=== PATIENT | female | born 1960 | race Caucasian/White ===

== ENCOUNTER 2019-10-23 20:32 | Inpatient (IN) | payer OTHER, SELFPAY ==
[2019-10-23 20:33] VITALS: BP 132/78; PULSE 98; RESP 18; TEMP 36.9; O2SAT 94; BMI 25.8
--- NOTE | 2019-10-23 20:37 | ED_ITS ---
Entered by Anni Ballard, acting as scribe for HPI - General Adult General: Chief complaint: Back Pain/Injury Stated complaint: back pain, SOB Time Seen by Provider: 10/23/19 20:35 History of Present Illness: HPI narrative: 59yo female presents with lower back pain. She had knee surgery about 1 week ago and pain started several days after. Pain worsens with deep breath. She denies any fever or cough.Patient has been up and active since surgery. Sudden onset of right-sided chest pain and shortness of breath. Patient has conversational dyspnea and hypoxia on arrival. Associated symptoms: Deny chest pain, dyspnea, malaise, nausea, rash or vomiting Review of Systems Const: Denies: fever, chills, body aches, change in appetite, fatigue or malaise ENMT: Denies: throat pain, ear pain, nasal discharge or nasal congestion Card: Denies: chest pain, edema, shortness of breath on exertion or shortness of breath when lying down Resp: Denies: shortness of breath, productive cough or non-productive cough GI: Denies: abdominal pain, nausea, vomiting, vomiting blood, coffee grounds in vomit, diarrhea, constipation, bloating, blood in stool or black tarry stool : Denies: flank pain, difficulty urinating, painful urination, urinary frequency or urinary urgency Skin/Breast: Denies: rash or itching [facility] ED PFSH: Medical History (Updated 10/26/19 @ 13:38 by Pk Young DO) Allergic rhinitis Surgical History History of hysterectomy History of orthopedic surgery Social History Smoking and tobacco status: former smoker Physical Exam Const: COMMON NORMALS: no apparent distress GENERAL APPEARANCE: cooperative and comfortable ORIENTATION/CONSCIOUSNESS: Yes awake, Yes oriented to person, Yes oriented to place and Yes oriented to time HENMT: COMMON NORMALS: normocephalic, head/scalp atraumatic, hearing grossly normal bilaterally, external ears normal, EAC's normal, TM's normal bilaterally, nasal mucous membranes and turbinates normal, moist oral mucous membranes and oropharynx normal HEAD & SCALP: normocephalic and atraumatic NOSE: nasal mucous membranes and turbinates normal EXTERNAL EAR: Yes external ears normal EXTERNAL AUDITORY CANAL: EAC's normal TYMPANIC MEMBRANE: TM's normal bilaterally Eye: COMMON NORMALS: PERRL, EOMs intact bilaterally, conjunctivae normal and no scleral icterus CONJUNCTIVA: Yes conjunctivae normal PUPIL: Yes PERRL Neck/C-Spine: COMMON NORMALS: full ROM, no lymphadenopathy, supple and no JVD Lymph: LYMPHATIC: no lymphadenopathy noted and no lymphedema noted Resp: COMMON NORMALS: normal respiratory effort, no retractions, no use of accessory muscles and clear to auscultation bilaterally AUSCULTATION: clear to auscultation bilaterally Cardio: COMMON NORMALS: no JVD, regular rate, regular rhythm and no murmurs RATE: regular rate RHYTHM: regular rhythm GI: COMMON NORMALS: soft to palpation and no hepatosplenomegaly AUSCULTATION: Yes normoactive bowel sounds PALPATION: Yes soft, No tender, No guarding and Yes no hepatosplenomegaly : BLADDER/KIDNEY EXAM: Yes CVA tenderness Back/Pelvis: GENERAL BACK: Yes CVA tenderness Extremity: COMMON NORMALS: normal to inspection, normal capillary refill, no clubbing, cyanosis or edema, no calf tenderness and no pedal edema Neuro: SENSORIUM/ORIENTATION: Yes oriented to person, Yes oriented to place and Yes oriented to time Skin: COMMON NORMALS: no rashes or lesions noted GENERAL SKIN EXAM: no rashes or lesions noted Course ED course: Patient is hypoxic. Has fairly significant PE burden. We will go and started on heparin and monitor in the hospital. Vital Signs: Vital signs: Vital Signs Temperature 98.3 F 10/26/19 09:57 Pulse Rate 91 10/26/19 09:57 Respiratory Rate 20 H 10/26/19 09:57 Blood Pressure 127/76 10/26/19 09:57 Pulse Oximetry 94 10/26/19 09:57 [facility] - General Adult Lab Data: Labs: Lab Results 10/23/19 10/23/19 Range/Units 20:00 20:00 WBC 7.3 (4.0-10.0) 10^3/ uL RBC 3.88 L (4.1-5.3) 10^6/u L Hgb 12.0 (11.5-15.3) g/dL Hct 36.7 L (37.0-47.0) % MCV 94.6 (81-99) fL MCH 30.9 (28.0-34.0) pg MCHC 32.7 (30.0-36.0) g/dL RDW 12.5 (12.1-15.1) % Plt Count 190 (130-400) 10^3/c mm MPV 11.2 H (7.4-10.4) fL Neut % (Auto) 69.0 % Lymph % (Auto) 21.8 % [place] % (Auto) 7.0 % Eos % (Auto) 1.8 % Baso % (Auto) 0.3 % Neut # (Auto) 5.1 (1.8-7.7) 10^3/u L Lymph # (Auto) 1.6 (0.8-4.8) 10^3/u L [place] # (Auto) 0.5 (0.2-0.9) 10^3/u L Eos # (Auto) 0.1 (0.0-0.8) 10^3/u L Baso # (Auto) 0.0 (0.0-0.1) 10^3/u L Nucleated RBC % (a uto) 0 % Nucleated RBCs # 0.0 /100WBC Sodium 142 (136-145) mmol/L Potassium 3.8 (3.5-5.1) mmol/L Chloride 107 (98-107) mmol/L Carbon Dioxide 26 (22-29) mmol/L Anion Gap 12.8 (5-19) BUN 18 (6-20) mg/dL Creatinine 0.9 (0.5-0.9) mg/dL GFR Calculation 64.3 L (90-130) mL/min Glucose 128 H (65-115) mg/dL Calcium 9.7 (8.5-10.5) mg/dL Total Bilirubin 0.2 (0.15-1.2) mg/dL AST 20 (0-32) U/L ALT 18 (0-33) U/L Alkaline Phosphata se 102 (35-105) IU/L Total Protein 7.2 (6.6-8.7) g/dL Albumin 4.1 (3.5-5.2) g/dL Globulin 3.1 (1.3-4.6) g/dL Discharge Plan Discharge Patient Disposition: Admitted As Inpatient Admit Provider: Sherry Baker Clinical Impression: Pulmonary embolism Condition: Stable Discharge Orders: Discharge Order (Routine); Ordered 10/26/19 Ordered By: Topher Diaz Referrals: Farzad Kennedy DO [Family Provider] - 11/09/19 8:45 am Discharge Diet: Regular Discharge Activity: Resume usual activity Patient Instructions: Iron Supplements (By mouth), Ketorolac (By mouth), Apixaban (By mouth) Additional Instructions: Take Eliquis 10 mg twice daily for 6 more days followed by 5 mg twice daily for at least 6 months. Take Toradol 10 mg twice daily for 5 days with meals to decrease inflammation around pulmonary embolism and left knee. Interventions: ED Discharge Assessment Last Done: 10/24/19 00:15 Discharge Date/Time: 10/24/19 00:15 Coding Level of Care Code ED Fire Extinguisher Repairer for Chg Fwd Exam Comprehensive The documentation recorded by the Elio vallejo Bailey Leadawn, accurately reflects the service I personally performed and the decisions made by Hannah brewster Curtis L, DO Oct 23, 2019 20:32
[2019-10-23 20:48] VITALS: O2SAT 95
--- NOTE | 2019-10-23 20:50 | PC.NURSE ---
pt reports surgery *1 week ago. Pt reports SOB and pain with deep breathing. Pt has decreased lung sounds posterior lower lung right side.
--- NOTE | 2019-10-23 21:25 | CTR_ITS ---
PROCEDURE INFORMATION: Exam: CT Angiography Chest With Contrast Exam date and time: 10/23/2019 9:55 PM Age: 59 years old Clinical indication: Shortness of breath; Chest pain; Additional info: Dypsnea, chest pain TECHNIQUE: Imaging protocol: Computed tomographic angiography of the chest with intravenous contrast. 3D rendering: MIP and/or 3D reconstructed images were created by the technologist. Total DLP: 560.74 mGy-cm Radiation optimization: All CT scans at this facility use at least one of these dose optimization techniques: automated exposure control; mA and/or kV adjustment per patient size (includes targeted exams where dose is matched to clinical indication); or iterative reconstruction. Contrast material: OMNI 350; Contrast volume: 95 ml; Contrast route: IV; COMPARISON: CR Chest 1 [place] [id number] 09/05/2018 4:45 AM FINDINGS: Pulmonary arteries: There is some partial atelectasis and infiltrate in the posterior right lower lobe which may represent some pneumonitis related to acute pulmonary emboli. There is a large embolus in the right lower lobe mostly obstructing flow to the posterior basal segment. Smaller emboli are seen in right middle and upper lobe branches and in the other basal segments. Aorta: Unremarkable. No aortic aneurysm. No aortic dissection. Lungs: There are multiple calcified granulomas in both lungs. Pleural space: Unremarkable. No pneumothorax. No pleural effusion. Heart: Unremarkable. No cardiomegaly. No pericardial effusion. Lymph nodes: There is no pulmonary mediastinal mass or adenopathy. Bones/joints: Unremarkable. No acute fracture. Soft tissues: Unremarkable. CT/CT angio chest PE protcl [id number] IMPRESSION: Positive for pulmonary emboli. Radiation Dose CTDIVOL = (mGy): DLP = 560.74 (mGy-cm)
[2019-10-23] MEDS: morphine 4 mg/mL SDV 1 mL IVP (21:35)
[2019-10-23] MEDS: ondansetron 2 mg/ML SDV 2 mL 4 MG IVP (21:35)
[2019-10-23 21:40] VITALS: BP 123/72; PULSE 90; RESP 18; O2SAT 90
[2019-10-23 21:43] LABS: Basophils % 0.3 %; Eosinophils # 0.1 10^3/uL (0.0-0.8); Eosinophils % 1.8 %; Hematocrit 36.7 % (37.0-47.0); Lymphocytes # 1.6 10^3/uL (0.8-4.8); Lymphocytes % 21.8 %; Mean Corpuscular HGB Conc 32.7 g/dL (30.0-36.0); Mean Corpuscular Hemoglobin 30.9 pg (28.0-34.0); Mean Corpuscular Volume 94.6 fL (81-99); Mean Platelet Volume 11.2 fL (7.4-10.4); Monocytes # 0.5 10^3/uL (0.2-0.9); Neutrophils # 5.1 10^3/uL (1.8-7.7); Nucleated Red Blood Cells % 0 %; Platelet Count 190 10^3/cmm (130-400); Red Blood Count 3.88 10^6/uL (4.1-5.3); Red Cell Distribution Width 12.5 % (12.1-15.1); White Blood Count 7.3 10^3/uL (4.0-10.0)
[2019-10-23 21:55] LABS: Alanine Aminotransferase 18 U/L (0-33); Albumin Level 4.1 g/dL (3.5-5.2); Alkaline Phosphatase 102 IU/L (35-105); Anion Gap 12.8 (5-19); Aspartate Amino Transferase 20 U/L (0-32); Blood Urea Nitrogen 18 mg/dL (6-20); Calcium 9.7 mg/dL (8.5-10.5); Carbon Dioxide 26 mmol/L (22-29); Chloride 107 mmol/L (98-107); Globulin 3.1 g/dL (1.3-4.6); Glomerular Filtration Rate 64.3 mL/min (90-130); Glucose 128 mg/dL (65-115); Potassium 3.8 mmol/L (3.5-5.1); Sodium 142 mmol/L (136-145); Total Bilirubin 0.2 mg/dL (0.15-1.2); Total Protein 7.2 g/dL (6.6-8.7)
[2019-10-23] MEDS: iohexol 350 mg/mL 100 mL Btl 95 ML IV (22:18)
--- NOTE | 2019-10-23 22:21 | PC.NURSE ---
pt transported to CT by stretcher with tech
[2019-10-23 22:56] VITALS: BP 117/89; PULSE 98; RESP 23; O2SAT 96
[2019-10-23 23:18] LABS: Platelet Count 165 10^3/cmm (130-400)
[2019-10-23] MEDS: heparin drip 25,000 UNIT/500 ML PREMIX 29 UNIT IV (23:36)
[2019-10-23] MEDS: cefTRIAXone 1,000 MG in sodium chloride 0.9% (plus) 50 ML 100 MG IV (23:36)
[2019-10-23] MEDS: heparin 5,000 unit/mL INJ 1 mL 5000 UNIT IV (23:37)
[2019-10-23 23:42] VITALS: BP 129/85; PULSE 32; O2SAT 96
[2019-10-24] VITALS (43 sets, daily range): BP systolic 105–135; BP diastolic 66–85; PULSE 69–112; RESP 15–34; TEMP 36.6–37.1; O2SAT 88–99
--- NOTE | 2019-10-24 00:08 | PC.NURSE ---
ATTEMPTED TO CALL REPORT TO ICU-ICU NURSE NOT READY FOR REPORT
[2019-10-24] MEDS: azithromycin 500 MG in sodium chloride 0.9% 250 ML 250 MG IV (00:28)
--- NOTE | 2019-10-24 01:26 | PC.NURSE ---
PT HAS NECKLACE AND EARRINGS AND WATCH ON HER. PT HAS BELONGINGS BAG AT BEDSIDE.
[2019-10-24] MEDS: morphine 4 mg/mL SDV 1 mL 2 MG IVP ×2 (01:39→09:13)
[2019-10-24] MEDS: D5-NS 0.45% + KCL 20 mEq 20 MEQ/1,000 ML BAG 100 MEQ IV (01:40)
--- NOTE | 2019-10-24 02:14 | USCV_ITS ---
Susan Turner Age: 59 Gender: F : 1960 Exam Date: 10/24/2019 08:57 Ordering Phys: Sherry Baker MD Technologist: Beatriz Mcdowell Exam Location: [facility] [place] Indication: PE HISTORY: Pulmonary embolism. PROCEDURES: Venous duplex imaging was performed in bilateral lower extremities. The following venous structures were evaluated: common femoral vein, profunda vein, proximal portion of the greater saphenous vein, superficial femoral vein, and the popliteal vein. In addition, the posterior tibial and peroneal trunk were evaluated. Serial compression, augmentation maneuvers, and spectral Doppler flow evaluation were performed. FINDINGS: Normal 2-D Doppler and augmentation and compressibility throughout the lower extremity venous structures. Additional imaging through the proximal calf veins also reveals no thrombus. Limited evaluation of the greater saphenous vein is patent with no thrombus.. CONCLUSIONS No evidence of DVT in the above-mentioned identifiable veins. Dr Everardo Huggins MD [facility] (Electronically Signed) Final Date: 26 October 2019 08:36 S
--- NOTE | 2019-10-24 02:57 | ECG_ITS ---
Measurements Intervals [place] Rate: 97 P: 20 CA: 160 QRS: 8 QRSD: 99 T: 26 QT: 325 QTc: 414 SINUS RHYTHM INCOMPLETE RIGHT BUNDLE BRANCH BLOCK [90+ ms QRS DURATION, TERMINAL R IN V1/V2, 40+ 40+ ms S IN I/aVL/V4/V5/V6] Compared to ECG 09/05/2018 07:09:41 Incomplete right bundle-branch block now present Electronically Signed On 10-24-2019 14:11:07 CENTRAL SUPPLY SUPERVISOR by Shirley Chairez M.D. [id number]
--- NOTE | 2019-10-24 02:57 | USCV_ITS ---
JohnnySusan mclain Age: 59 Gender: F : 1960 Exam Date: 10/24/2019 08:48 Ordering Phys: Sherry Baker MD Technologist: Beatriz Mcdowell Exam Location: [facility] [place] Indication: ASSESS R VENTRICULAR FUNCTION BP: 108 / 69 HR: 77 Rhythm: Sinus Technical Quality: Adequate MEASUREMENTS (Male / Female) Normal Values 2D ECHO LV Diastolic Diameter PLAX 3.1 cm 4.2 - 5.9 / 3.9 - 5.3 cm LV Systolic Diameter PLAX 2.6 cm LV Chamber Size 4.0 cm IVS Diastolic Thickness 1.3 cm 0.6 - 1.0 / 0.6 - 0.9 cm IVS Systolic Thickness 1.3 cm LVPW Diastolic Thickness 1.5 cm 0.6 - 1.0 / 0.6 - 0.9 cm LVPW Systolic Thickness 2.1 cm RV Chamber Size 2.2 cm LVOT Diameter 2.0 cm LV Ejection Fraction 2D Teich 34.5 % LV Ejection Fraction MOD 2C 61.3 % LV Ejection Fraction 2C AL 62.4 % LA Diameter 2.8 cm LA Width 3.6 cm LA Height 3.9 cm RA Width 2.4 cm RA Height 3.9 cm Aorta at Sinotubular Diameter 2.7 cm M-MODE LV Diastolic Diameter MM 4.4 cm 4.2 - 5.9 / 3.9 - 5.3 cm LV Systolic Diameter MM 3.1 cm LV Ejection Fraction MM Teich 56.7 % IVS Diastolic Thickness MM 0.8 cm 0.6 - 1.0 / 0.6 - 0.9 cm IVS Systolic Thickness MM 1.0 cm LVPW Diastolic Thickness MM 0.7 cm 0.6 - 1.0 / 0.6 - 0.9 cm LVPW Systolic Thickness MM 0.9 cm Aortic Annulus Diameter 3.1 cm LA Ao Ratio MM 0.9 MV E Point Septal Separation 0.3 cm FINDINGS Left Ventricle Normal left ventricular size, systolic function and wall thickness, with no regional wall motion abnormalities. Left ventricular ejection fraction is estimated at 60 %. Right Ventricle Normal right ventricular size and systolic function. Right Atrium Normal right atrial size. Left Atrium Normal left atrial size. Mitral Valve Structurally normal mitral valve. Aortic Valve Structurally normal trileaflet aortic valve. Tricuspid Valve Structurally normal tricuspid valve. Pulmonic Valve Structurally normal pulmonic valve. Pericardium No pericardial effusion. Aorta Normal sized aortic root. CONCLUSIONS 1. This is a limited 2 D echocardiogram. 2. Normal left ventricular size, systolic function and wall thickness, with no regional wall motion abnormalities. Left ventricular ejection fraction is estimated at 60 %. 3. Normal right ventricular size and systolic function. 4. No prior similar studies to compare. Shirley Chairez MD (Electronically Signed) Final Date: 24 October 2019 18:11 S
[2019-10-24] MEDS: ketorolac 30 mg/mL INJ IVP ×3 (03:09→20:40)
--- NOTE | 2019-10-24 03:52 | PM.HP ---
Providers/Chief Complaint Admitting Physician: Sherry Baker MD Chief Complaint: BACK PAIN History of Present Illness Susan Turner is a 59 year old female without significant comorbidities who presented to the ER today with chief complaints of chest pain and shortness of breath. Patient underwent meniscal surgery on the left knee in [place] approximately 1 week ago. She was discharged the next day with instructions to be nonweightbearing on the affected leg. She went to work the next day and through the week was not strictly nonweightbearing. She was still able to ambulate with the help of a walker. On waking up this morning she started to experience right-sided chest discomfort radiating into her axilla and back. She continued to be at work through the day but by the evening the pain got severe enough to the point that she needed to come to the ED. Additionally her was concerned because she was looking more tachypneic and was unable to speak in complete sentences without catching her breath. On arrival at the ED her O2 sat was 89% on attempting to lie recumbent. She was also noted to be tachypneic with respiratory rate of around 40/min. Blood pressure has remained stable. CTA of the chest was performed which showed large embolus in the right lower lobe mostly obstructing flow to the posterior basal segment. Smaller emboli are seen in the right middle and upper lobe branches and in the other basal segments. There was also some partial atelectasis and infiltrate in the posterior right lower lobe representing pneumonitis related to acute PE. Patient has received morphine 4 mg with improvement in pain. She has been started on unfractionated heparin weight-based protocol from the ED. At the time of my exam she is feeling improved, was noted to be asleep, however on waking up does become tachypneic within less than 5 minutes of conversation. Oxygen saturation is maintained. Denies any cough or expectoration. Denies URI symptoms. Denies fever. No past history of PE or lower extremity DVT. No family history of hypercoagulable states. She is postmenopausal, not on any hormone replacement. Review of Systems General: Reports: 10 or more systems reviewed and unremarkable except in HPI and below Const: Denies: fever, chills or body aches Eyes: Denies: change in vision, blurry vision or photophobia ENMT: Reports: hoarseness; Denies: throat pain, enlarged tonsils, painful swallowing or nasal congestion Card: Reports: chest pain and shortness of breath on exertion; Denies: palpitations, irregular heart rhythm, edema, swelling of feet/ankles, lightheadedness, pre-syncope or shortness of breath when lying down Resp: Reports: shortness of breath; Denies: productive cough, non-productive cough, wheezing, stridor, pain on inspiration, change in phlegm color, coughing up blood or chest congestion GI: Denies: abdominal pain, nausea, vomiting, vomiting blood, coffee grounds in vomit, difficulty swallowing, heartburn/indigestion, diarrhea, constipation, cramping, change in stool character, blood in stool or black tarry stool : Denies: flank pain, difficulty urinating, painful urination, urinary frequency, urinary urgency, urinary hesitancy or blood in urine Musc: Denies: neck pain, back pain, extremity pain, joint swelling, joint warmth or deformity Neuro: Denies: headache, numbness in extremities, weakness in extremities, changes in sensation, difficulty walking, frequent falls, dizziness, vertigo, behavioral changes, slurred speech or seizure-like activity Psych: Denies: anxiety, depression, suicidal ideation or homicidal ideation Endo: Denies: excessive urination, excessive thirst, tired all the time, cold intolerance or hot flashes Thom/Lymph: Denies: easy bruising or easy bleeding Medications/Allergies Allergies Allergy/AdvReac Type Severity Reaction Status Date / Time No Known Allergies Allergy Verified 10/23/19 20:35 PFSH Acute PFSH: Medical History (Updated 10/24/19 @ 03:59 by Sherry Baker MD) Allergic rhinitis Surgical History History of hysterectomy History of orthopedic surgery Social History Smoking and tobacco status: former smoker Vitals/I&O/Wt Last Vital Signs Temp 98.8 F 10/24/19 01:00 Pulse 104 H 10/24/19 02:00 Resp 23 H 10/24/19 02:00 BP 127/81 10/24/19 02:00 Pulse Ox 98 10/24/19 02:00 10/23/19 10/23/19 10/24/19 14:59 22:59 06:59 Intake Total 186.667 / 186.667 Balance 186.667 / 186.667 Weight last 48 hrs Weight 72.575 kg Physical Exam Narrative: EXAM NARRATIVE: GEN: Awake, alert and oriented, no acute distress, lying in bed asleep on initial exam, however becomes tachypneic upon talking in complete sentences. CVS: S1S2 N RS: clear to auscultation B/L Abd: Soft, nt/nd , bs+ OPERATOR WEAPON LOCATING RADAR: no focal neuro deficits EXT: Bilateral lower extremity with patchy tanning, patient attributes this to using a recent tanning lotions. Left lower extremity slightly more swollen when compared to the right. Negative Homans sign. No calf tenderness. Data : 10/23/19 23:06 10/23/19 20:00 Micro: Microbiology 10/23/19 23:06 Blood Culture - Preliminary Blood SPECIMEN COLLECTED 10/23/19 23:12 Blood Culture - Preliminary Blood SPECIMEN COLLECTED A&P Assessment and plan (1) Pulmonary embolism: Status: Acute Code(s): I26.99 - Other pulmonary embolism without acute cor pulmonale (2) History of surgical removal of meniscus of knee: Status: Acute Code(s): Z98.890 - Other specified postprocedural states Attestations Medical Necessity Statement*: Admit to ICU in view of large pulmonary embolism. Patient is currently hemodynamically stable In the ER she was noted to be hypoxic with O2 sat of 89% on lying down improved with 2 L supplemental O2. Systolic blood pressure has been consistently greater than 90 mmHg. Started on unfractionated heparin weight-based infusion in the ER. We will continue the same for now. If patient remains hemodynamically stable without need for thrombolysis or thrombectomy, likely to be transitioned to low molecular weight heparin versus NOAC. Per history appears to be a provoked PE after recent orthopedic surgery. Will obtain venous ultrasound of bilateral lower extremity to look for DVT. EKG and echocardiogram to rule out right heart strain. Supplemental O2 to keep O2 sat greater than 92% Pain currently improved with morphine. Pain likely to be a combination of acute PE and surrounding inflammatory pneumonitis. She received empiric antimicrobials in the ER due to concerns for pneumonia, however given acute presentation and pattern of pneumonitis more likely to be inflammatory changes from the PE, will not continue any antibiotics for now DVT prophylaxis: Currently on therapeutic anticoagulation Full code Coding Level of Care Code Acute Space Physicist for Chg Fwd Diagnoses Pulmonary embolism I26.99 History of surgical removal of meniscus of knee Z98.890
[2019-10-24 04:33] LABS: Partial Thromboplastin Time 90.7 SECONDS (23.9-36.7)
--- NOTE | 2019-10-24 06:37 | PC.NURSE ---
SHIFT SUMMARY PT IS ON 2LNC, PT HAS COMPLAINED OF PAIN AND HAS BEEN GIVEN PAIN AVAILABLE. PT HAS HAD ADEQUATE URINE OUTPUT. PT HAS NOT HAD ANY RESPIRATORY DISTRESS. PT COMPLAINS OF BACK HURTING AND IT SPASMS AT TIMES. PT HEP DRIP CURRENTLY RUNNING AT 17 ML/HR. NO COMPLAINTS OF CHEST PAIN.
--- NOTE | 2019-10-24 08:57 | PM.PN ---
Subjective Subjective: Interval history: Last night. H&P and labs noted. On examination this morning patient is lying comfortably in bed to get out of breath and tachypneic on talking. She is complaining of pain in her chest mostly in the back. Denies of having any nausea, vomiting, dizziness, palpitations, headache. Discussed in detail with the patient regarding the cause for her to have potential PEs. Vitals/I&O/Wt Last Vital Signs Temp 98.4 F 10/24/19 06:00 Pulse 74 10/24/19 08:00 Resp 20 H 10/24/19 08:00 BP 108/69 10/24/19 08:00 Pulse Ox 99 10/24/19 08:00 10/23/19 10/24/19 10/24/19 22:59 06:59 14:59 Intake Total 186.667 / 186.667 Output Total 300 / 300 Balance -113.333 / -113.333 Weight last 48 hrs Weight 72.575 kg Physical Exam Narrative: EXAM NARRATIVE: General: No acute distress, AO x3 HEENT: PERRLA, pupils bilaterally equal and reactive Chest: Normal vesicular breath sounds, no added sounds, decreased air entry in left middle zone in the posterior area. Equal good air entry bilaterally CVS: S1-S2 regular, no murmurs, no tachycardia, no gallops, no rubs Abdomen: Soft, nontender, no organomegaly, bowel sounds present Neuro: No focal deficits, no facial deformity, AO x3, power 5/5 in all limbs Data : 10/23/19 23:06 10/23/19 20:00 Micro: Microbiology 10/23/19 23:06 Blood Culture - Preliminary Blood SPECIMEN COLLECTED 10/23/19 23:12 Blood Culture - Preliminary Blood SPECIMEN COLLECTED A&P Assessment and plan (1) Pulmonary embolism: Status: Acute Code(s): I26.99 - Other pulmonary embolism without acute cor pulmonale (2) History of surgical removal of meniscus of knee: Status: Acute Code(s): Z98.890 - Other specified postprocedural states Additional A&P Information Submassive PE: Patient is currently hemodynamically stable Her mean arterial pressures have been more than 70 since admission. Patient's heart rate has been in sinus, no more bradycardia at present. Keep saturation over 94% with oxygen supplementation 2 L nasal cannula. Continue heparin drip keeping APTT over 65 but less than 75. We will transition her over to oral agent from tomorrow. Check hemoglobin, platelets, APTT as per the protocol. Lower limb Dopplers, echocardiogram done. Results awaited. Chest pain most likely pleuritic because of pneumonitis from the clot burden: Incentive spirometry. Oxygen supplementation. Toradol for pain standing every 8 hour, will change morphine to Dilaudid 1 mg every 4 hours as needed. PT/OT tomorrow. Out of bed to chair today. Patient would need home oxygen evaluation before discharge tomorrow. Full code Regular diet. Attestations Medical Necessity Statement*: Needs controlled hospitalization for submassive PE Critical Care Time: Critical Care Time (min): 60 Coding Level of Care Code Acute Stucco Applicator for Arnulfo Martin Diagnoses Pulmonary embolism I26.99 History of surgical removal of meniscus of knee Z98.890
[2019-10-24] MEDS: acetaminophen 325 mg Tablet 650 MG PO (09:14)
[2019-10-24 09:36] LABS: Partial Thromboplastin Time 64.3 SECONDS (23.9-36.7)
[2019-10-24] MEDS: HYDROmorphone 1 mg/mL INJ 1 mL IVP ×2 (13:51→21:54)
[2019-10-24 15:26] LABS: Partial Thromboplastin Time 54.6 SECONDS (23.9-36.7)
--- NOTE | 2019-10-24 18:32 | PC.NURSE ---
Orders received from Dr. Diaz to keep PTT range above 65 instead of 55.1 with the heparin drip.
[2019-10-24 21:36] LABS: Partial Thromboplastin Time 60.4 SECONDS (23.9-36.7)
[2019-10-24] MEDS: heparin 5,000 unit/mL INJ 1 mL IV (21:51)
[2019-10-25] VITALS (15 sets, daily range): BP systolic 115–145; BP diastolic 64–94; PULSE 71–90; RESP 14–24; TEMP 36.6–37.6; O2SAT 92–98
[2019-10-25 03:11] LABS: Basophils % 0.4 %; Eosinophils # 0.2 10^3/uL (0.0-0.8); Eosinophils % 2.8 %; Hematocrit 31.7 % (37.0-47.0); Hemoglobin 10.1 g/dL (11.5-15.3); Lymphocytes # 2.1 10^3/uL (0.8-4.8); Lymphocytes % 36.7 %; Mean Corpuscular HGB Conc 31.9 g/dL (30.0-36.0); Mean Corpuscular Hemoglobin 30.2 pg (28.0-34.0); Mean Corpuscular Volume 94.9 fL (81-99); Mean Platelet Volume 10.7 fL (7.4-10.4); Monocytes # 0.5 10^3/uL (0.2-0.9); Monocytes % 9.1 %; Neutrophils # 2.9 10^3/uL (1.8-7.7); Neutrophils % 50.8 %; Nucleated Red Blood Cells % 0 %; Platelet Count 154 10^3/cmm (130-400); Red Blood Count 3.34 10^6/uL (4.1-5.3); Red Cell Distribution Width 12.2 % (12.1-15.1); White Blood Count 5.7 10^3/uL (4.0-10.0)
[2019-10-25] MEDS: ketorolac 30 mg/mL INJ IVP ×2 (03:14→11:56)
[2019-10-25 03:44] LABS: Anion Gap 12.9 (5-19); Blood Urea Nitrogen 18 mg/dL (6-20); Carbon Dioxide 24 mmol/L (22-29); Chloride 105 mmol/L (98-107); Creatinine Clr Calc Pharmacy 104.2434; Glomerular Filtration Rate 102.7 mL/min (90-130); Glucose 98 mg/dL (65-115); Osmolality Calculated 282 mOsm/kg (285-295); Potassium 3.9 mmol/L (3.5-5.1); Sodium 138 mmol/L (136-145)
[2019-10-25 04:02] LABS: Partial Thromboplastin Time 67.6 SECONDS (23.9-36.7)
[2019-10-25] MEDS: heparin drip 25,000 UNIT/500 ML PREMIX 19 UNIT IV (04:09)
[2019-10-25 09:38] LABS: Partial Thromboplastin Time 60.8 SECONDS (23.9-36.7)
--- NOTE | 2019-10-25 10:15 | PM.PN ---
Subjective Subjective: Interval history: No acute events overnight. This morning patient is doing very well. She is off oxygen saturating 97%. Patient states he is feeling a lot better. Patient is able to talk to me in full sentences without having any tachypnea, shortness of breath, chest pain. Patient at baseline denies of having any nausea, vomiting, palpitations, headache. Patient has been continued on heparin drip with her APTT being in range. Vitals/I&O/Wt Last Vital Signs Temp 98.0 F 10/25/19 02:00 Pulse 77 10/25/19 06:00 Resp 18 10/25/19 06:00 BP 122/71 10/25/19 06:00 Pulse Ox 97 10/25/19 06:00 10/24/19 10/25/19 10/25/19 22:59 06:59 14:59 Intake Total 412.900 / 700.000 Output Total 100 / 100 0 / 100 Balance 312.900 / 600.000 0 / 600.000 Weight last 48 hrs Weight 72.575 kg Physical Exam Narrative: EXAM NARRATIVE: General: No acute distress, AO x3 HEENT: PERRLA, pupils bilaterally equal and reactive Chest: Normal vesicular breath sounds, no added sounds, decreased air entry in left middle zone in the posterior area. Equal good air entry bilaterally CVS: S1-S2 regular, no murmurs, no tachycardia, no gallops, no rubs Abdomen: Soft, nontender, no organomegaly, bowel sounds present Neuro: No focal deficits, no facial deformity, AO x3, power 5/5 in all limbs Data : 10/25/19 02:48 10/25/19 02:48 Micro: Microbiology 10/23/19 23:06 Blood Culture - Preliminary Blood NEGATIVE TO DATE 10/23/19 23:12 Blood Culture - Preliminary Blood NEGATIVE TO DATE A&P Assessment and plan (1) Pulmonary embolism: Status: Acute Code(s): I26.99 - Other pulmonary embolism without acute cor pulmonale (2) History of surgical removal of meniscus of knee: Status: Acute Code(s): Z98.890 - Other specified postprocedural states Additional A&P Information Submassive PE: Patient is currently hemodynamically stable Her mean arterial pressures have been more than 70 since admission. Patient's heart rate has been in sinus, no more bradycardia at present. Keep saturation over 94% with oxygen supplementation 2 L nasal cannula. Plan to transition over to Eliquis 10 mg twice daily for for 7 days and then 5 mg twice daily afterwards. Can plan to stop heparin 30 minutes after giving Eliquis. Echocardiogram results appreciated. Lower limb Dopplers results still awaited.. Chest pain most likely pleuritic because of pneumonitis from the clot burden: Resolved Continue with incentive spirometry. Oxygen supplementation. Continue with Toradol for pain standing every 8 hour, will change morphine to Dilaudid 1 mg every 4 hours as needed. Anemia: Hemoglobin 10.1 today. Which is lower than her numbers on admission. We will check iron panel and start patient on oral iron supplementation twice daily. We will repeat hemoglobin and hematocrit in evening at around 4 PM to rule out acute drop. For now patient is hemodynamically stable. PT/OT tomorrow. Out of bed to chair today. Patient would need home oxygen evaluation before discharge tomorrow. Full code Regular diet. Attestations Medical Necessity Statement*: Needs controlled hospitalization for resolving submassive PE Time Spent in Patient Care: Greater than 35 minutes Coding Level of Care Code Acute Abattoir Supervisor for Arnulfo Martin Diagnoses Pulmonary embolism I26.99 History of surgical removal of meniscus of knee Z98.890
[2019-10-25 10:40] LABS: Iron 25 ug/dL (37-145); Percent Saturation 15.4 % (20-50); Total Iron Binding Capacity 162 mcg/dl; Unsaturated Iron Binding 137 ug/dL (112-347)
[2019-10-25] MEDS: ferrous sulfate EC 325 mg Tablet PO ×2 (11:13→18:24)
[2019-10-25] MEDS: apixaban 5 mg Tablet 10 MG PO ×2 (11:14→18:24)
--- NOTE | 2019-10-25 11:50 | PC.NURSE ---
Heparin gtt off as ordered. Pt up to restroom. Reminded about her knee brace. Pt stated she did not want to wer it and did not pu it on.
--- NOTE | 2019-10-25 12:26 | PC.NURSE ---
Pt walking across unit, without her knee brace. cardiac monitor off, pt unhooked herself from monitoring cables. Pt stated she was going to waiting room to see her young grandchildren.
[2019-10-25 16:07] LABS: Hematocrit 32.7 % (37.0-47.0); Hemoglobin 10.4 g/dL (11.5-15.3)
[2019-10-26] VITALS (8 sets, daily range): BP systolic 127–145; BP diastolic 76–90; PULSE 70–91; RESP 15–26; TEMP 36.8–37; O2SAT 91–97
[2019-10-26 05:02] LABS: Basophils % 0.6 %; Eosinophils # 0.2 10^3/uL (0.0-0.8); Eosinophils % 2.9 %; Hematocrit 32.9 % (37.0-47.0); Lymphocytes # 1.8 10^3/uL (0.8-4.8); Lymphocytes % 34.6 %; Mean Corpuscular HGB Conc 33.4 g/dL (30.0-36.0); Mean Corpuscular Hemoglobin 31.4 pg (28.0-34.0); Mean Platelet Volume 10.8 fL (7.4-10.4); Monocytes # 0.4 10^3/uL (0.2-0.9); Neutrophils # 2.8 10^3/uL (1.8-7.7); Neutrophils % 54.7 %; Nucleated Red Blood Cells % 0 %; Platelet Count 208 10^3/cmm (130-400); Red Cell Distribution Width 11.9 % (12.1-15.1); White Blood Count 5.2 10^3/uL (4.0-10.0)
[2019-10-26 05:11] LABS: Anion Gap 14.7 (5-19); Blood Urea Nitrogen 18 mg/dL (6-20); Calcium 9.2 mg/dL (8.5-10.5); Carbon Dioxide 23 mmol/L (22-29); Chloride 105 mmol/L (98-107); Glomerular Filtration Rate 85.9 mL/min (90-130); Glucose 94 mg/dL (65-115); Osmolality Calculated 284 mOsm/kg (285-295); Potassium 3.7 mmol/L (3.5-5.1); Sodium 139 mmol/L (136-145)
--- NOTE | 2019-10-26 08:45 | PM.DCS ---
Discharge Providers Date of Admission: 10/23/19 23:06 Date of Discharge: October 26, 2019 Attending Provider at Admission: Sherry Baker MD Attending Provider at Discharge: Topher Diaz MD Diagnoses at Discharge Discharge Diagnosis (1) Pulmonary embolism: Status: Acute (2) History of surgical removal of meniscus of knee: Status: Acute Reason for Visit Reason for Visit: Reason For Visit: BACK PAIN Hospital Course Discharge Summary: Susan Turner is a 59 year old female without significant comorbidities who presented to the ER on October 24 with chief complaints of chest pain and shortness of breath. Patient underwent meniscal surgery on the left knee in [place] approximately 1 week ago. She was discharged the next day with instructions to be nonweightbearing on the affected leg. She went to work the next day and through the week was not strictly nonweightbearing. She was still able to ambulate with the help of a walker. On waking up this morning she started to experience right-sided chest discomfort radiating into her axilla and back. She continued to be at work through the day but by the evening the pain got severe enough to the point that she needed to come to the ED. Additionally her was concerned because she was looking more tachypneic and was unable to speak in complete sentences without catching her breath. On arrival at the ED her O2 sat was 89% on attempting to lie recumbent. She was also noted to be tachypneic with respiratory rate of around 40/min. Blood pressure has remained stable. CTA of the chest was performed which showed large embolus in the right lower lobe mostly obstructing flow to the posterior basal segment. Smaller emboli are seen in the right middle and upper lobe branches and in the other basal segments. There was also some partial atelectasis and infiltrate in the posterior right lower lobe representing pneumonitis related to acute PE. Patient on admission was tachypneic but was hemodynamically stable and saturating around 88 to 90% on room air so was admitted to the ICU and started on heparin drip given the large pulmonary embolism. Patient was complaining of extreme pain in her back around taking deep inspiration which is most likely due to pneumonitis around the primary embolism. She was treated with anti-inflammatories and within 1 day with IV heparin her saturations, tachypnea, pain improved. On the second day patient was transitioned over to Eliquis as per the DVT/PE protocol and her hemoglobin was monitored for 1 day. Patient has been discharged in hemodynamically stable condition, saturating more than 94% on room air at rest at home O2 evaluation has been done. Patient's iron panel suggested of iron deficiency anemia so she was counseled and educated about high iron diet along with oral iron supplementation. Physical Exam Narrative: EXAM NARRATIVE: General: No acute distress, AO x3 HEENT: PERRLA, pupils bilaterally equal and reactive Chest: Normal vesicular breath sounds, no added sounds, decreased air entry in left middle zone in the posterior area. Equal good air entry bilaterally CVS: S1-S2 regular, no murmurs, no tachycardia, no gallops, no rubs Abdomen: Soft, nontender, no organomegaly, bowel sounds present Neuro: No focal deficits, no facial deformity, AO x3, power 5/5 in all limbs Discharge Data Data Completed and Pending: Completed Studies During Hospitalization Category Date Time Status CT angio chest PE protcl [id number] Stat Cat Scan 10/23/19 21:25 Completed CV echo limited 9 [id number] Routine Ultrasound 10/24/19 02:57 [place] [id number] Routin e Ultrasound 10/24/19 02:14 Completed Pending at discharge Category Date Time Status Basic Metabolic P vaibhav AM LABS Lab 10/27/19 04:00 Ordered Blood Culture Sta t Lab 10/23/19 23:06 Results Complete Blood Co unt w/Auto AM LABS Lab 10/27/19 04:00 Ordered Labs from last 24 hours 10/26/19 10/26/19 10/25/19 03:57 03:57 15:54 WBC 5.2 RBC 3.50 L Hgb 11.0 L 10.4 L Hct 32.9 L 32.7 L MCV 94.0 MCH 31.4 MCHC 33.4 RDW 11.9 L Plt Count 208 MPV 10.8 H Neut % (Auto) 54.7 Lymph % (Auto) 34.6 [place] % (Auto) 7.0 Eos % (Auto) 2.9 Baso % (Auto) 0.6 Neut # (Auto) 2.8 Lymph # (Auto) 1.8 [place] # (Auto) 0.4 Eos # (Auto) 0.2 Baso # (Auto) 0.0 Nucleated RBC % (a uto) 0 Nucleated RBCs # 0.0 APTT Sodium 139 Potassium 3.7 Chloride 105 Carbon Dioxide 23 Anion Gap 14.7 BUN 18 Creatinine 0.7 GFR Calculation 85.9 L Glucose 94 Calculated Osmolal ity 284 L Calcium 9.2 Iron TIBC % Saturation Unsat Iron Binding 10/25/19 10/25/19 08:57 02:48 WBC RBC Hgb Hct MCV MCH MCHC RDW Plt Count MPV Neut % (Auto) Lymph % (Auto) [place] % (Auto) Eos % (Auto) Baso % (Auto) Neut # (Auto) Lymph # (Auto) [place] # (Auto) Eos # (Auto) Baso # (Auto) Nucleated RBC % (a uto) Nucleated RBCs # APTT 60.8 H Sodium Potassium Chloride Carbon Dioxide Anion Gap BUN Creatinine GFR Calculation Glucose Calculated Osmolal ity Calcium Iron 25 L TIBC 162 % Saturation 15.4 L Unsat Iron Binding 137 Vitals: Last Vital Signs Temp 98.6 F 10/26/19 04:00 Pulse 70 10/26/19 06:00 Resp 15 10/26/19 06:00 BP 137/90 10/26/19 04:00 Pulse Ox 92 10/26/19 06:00 Discharge Plan Discharge Patient Disposition: Home, Self-Care Condition: Stable Prescriptions: New ferrous sulfate 325 mg (65 mg iron) Tablet,Delayed Release (Dr/Ec) 325 mg PO BIDWM Qty: 60 RF: 0 Eliquis DVT-PE Treat 30D Start 5 mg (74 tabs) tablets,dose pack See Rx Instructions .ROUTE .COMPLEX Qty: 74 RF: 0 ketorolac 10 mg tablet 10 mg PO BID 4 Days Qty: 8 RF: 0 Referrals: Farzad Kennedy DO [Family Provider] - 2 weeks Discharge Diet: Regular Discharge Activity: Resume usual activity Activity Restrictions/Additional Instructions: Take Eliquis 10 mg twice daily for 6 more days followed by 5 mg twice daily for at least 6 months. Take Toradol 10 mg twice daily for 5 days with meals to decrease inflammation around pulmonary embolism and left knee. Discharge Attestations Time Spent in Discharge Care*: greater than 30 min Specific Discharge Activities: Specific discharge activities: educating patient and documenting/other paperwork Status at Discharge: Cognitive status at discharge: cognitively intact, Behavioral status at discharge: cooperative, Functional status at discharge: independent ambulation Overall status at discharge: patient is back to baseline Quality Metrics Clinical Quality Measures During this hospital stay, did patient experience: VTE Contraindication to Overlap Therapy: Overlap therapy prescribed VTE Discharge Education: Education about anticoagulant therapy/Care Notes given and Medication side effects education Coding Level of Care Code Acute Community Relations Specialist for Karthikeyang Fwd Diagnoses Pulmonary embolism I26.99 History of surgical removal of meniscus of knee Z98.890
[2019-10-26] MEDS: ferrous sulfate EC 325 mg Tablet PO (08:50)
[2019-10-26] MEDS: ketorolac 30 mg/mL INJ IVP (08:51)
--- NOTE | 2019-10-26 09:09 | PC.NURSE ---
bilat ac ivs removed intact. pressure dressings to each site. instructed to remove in about 30 min. to be d/c home.
--- NOTE | 2019-10-26 10:57 | PC.NURSE ---
d/c home with family
--- NOTE | 2019-10-26 11:09 | PC.NURSE ---
apparently transmit didnt go to [facility] pharmacy. scripts called in. and read back by pharmacist.
== END 2019-10-26 11:00 | disposition home or self-care (01) | DRG 176 ==
LOC: ER 20:55 → ICU 23:40
PROVIDERS: Admitting Provider Student in an Organized Health Care Education/Training Program; Emergency Provider Family Medicine; Family Provider Internal Medicine; Visit Provider Student in an Organized Health Care Education/Training Program
DX: I26.99 Other pulmonary embolism without acute cor pulmonale (principal); D50.9 Iron deficiency anemia, unspecified; Z87.891 Personal history of nicotine dependence; Z79.890 Hormone replacement therapy; Z79.51 Long term (current) use of inhaled steroids
CPT/HCPCS: 12345; 36415; 71275; 80048; 80053; 83540; 83550; 85014; 85018; 85025; 85049; 85730; 87040; 93005; 93308; 93970; 96375; 97161; 97530; 97760; 99282; J0456; J0696; J1170; J1644; J1885; J2270; J2405; J7050; Q9967

== ENCOUNTER 2020-10-06 16:33 | Emergency (ER) | payer OTHER, SELFPAY ==
[2020-10-06 16:46] VITALS: BP 135/74; PULSE 77; RESP 18; TEMP 37.1; O2SAT 97; BMI 23.6
--- NOTE | 2020-10-06 17:13 | XR_ITS ---
WS: [id number] Left knee, 3 views, 10/06/2020 Clinical Data: pain/twisting trauma/cannot ambulate Comparison: Bilateral knees, 12/09/2017. Findings: No fractures or dislocations are seen. The joint spaces are normal. The patella shows posterior spurr ing.. The soft tissues are unremarkable. There is narrowing of the medial joint compartment. There is spurring of the medial and lateral tibial plateaus and medial lateral femoral condyles. Ther e is a small metal artifact in the proximal anterior medial subcutaneous soft tissue of the left leg perhaps from surgery.. XR/XR knee LT 3V* [id number] Impression: 1. Osteoarthritis involving all joint compartments. 2. Negative for fracture.
--- NOTE | 2020-10-06 17:14 | W.ED.LOWEXIN ---
HPI - Extremity Injury (Lower) General: Chief Complaint: Extremity Injury, Lower Stated Complaint: left knee injury/surgery last year Time Seen by Provider: 10/06/20 17:05 Source: patient Mode of arrival: wheelchair Limitations: no limitations History of Present Illness: HPI Narrative: Patient is a nice 60-year-old female who presents to ED today for evaluation of her left knee pain. Patient tells me she had a meniscal repair to her knee approximately a year ago by Dr. Mendoza. She tells me she has had issues with the knee ever since. Shortly after her surgery she developed a large PE. She was seen at our facility and hospitalized at that time. Patient tells me today while at work she twisted while turning around in her chair and immediately began feeling pain in her knee. Patient tells me she feels like the knee is spasming and cannot fully extend the joint. complaint: knee injury Onset (ago): hour(s) Injury: Left: knee Place: work Severity: severe Relieving factors: immobilization Exacerbating factors: weight bearing, movement and palpation Context: other (twisting) Other symptoms: none Review of Systems Const: Denies: fever(s) Card: Denies: chest pain Resp: Denies: dyspnea GI: Denies: nausea or vomiting Musc: Reports: joint pain (L knee) and limited range of motion; Denies: extremity pain or extremity swelling Neuro: Denies: numbness in extremities, weakness in extremities or sensory changes [facility] ED PFSH: Medical History (Updated 10/06/20 @ 18:05 by DONITA Earl) Allergic rhinitis Surgical History (Updated 10/24/19 @ 04:03 by Sherry Baker MD) History of hysterectomy History of orthopedic surgery Social History Smoking and tobacco status: former smoker Physical Exam Const: COMMON NORMALS: no acute distress, average body habitus, patient oriented x3, no limitations, healthy appearing, alert and well nourished Extremity: GENERAL: Yes normal exam except as noted OTHER: pt does not have any point tenderness the knee joint; there is no appreciable swelling/warmth; knee is fixed in slight flexion and pt states she cannot flex further or extend joint without severe pain; extremity NV intact Neuro: COMMON NORMALS: patient oriented x3 and no sensory deficits noted SENSORIUM/ORIENTATION: Yes alert GAIT: Yes Unable to assess gait Skin: COMMON NORMALS: no rashes or lesions noted GENERAL SKIN EXAM: no rashes or lesions noted Course Vital Signs: Vital signs: Vital Signs Temperature 98.8 F 10/06/20 16:46 Pulse Rate 77 10/06/20 16:46 Respiratory Rate 16 10/06/20 17:24 Blood Pressure 135/74 10/06/20 16:46 Pulse Oximetry 98 10/06/20 17:24 MDM - Extremity Injury (Lower) MDM Narrative: Medical decision making narrative: Patient feels better after IM pain meds/muscle relaxer. I think patient would benefit from outpatient MRI of her knee. She agrees to follow up with Dr. Kennedy for this. She has crutches at home she feels comfortable using in the meantime. Return to ED precautions given. Imaging Data^: XR L knee: My impression: NAD Discharge Plan Discharge Patient Disposition: Home Clinical Impression: Acute pain of left knee Condition: Stable Prescriptions: New cyclobenzaprine 10 mg tablet 10 mg PO TID Qty: 14 RF: 0 hydrocodone-acetaminophen 5-325 mg tablet 1 tab PO Q6H PRN (Reason: pain) Qty: 14 RF: 0 No Action ferrous sulfate 325 mg (65 mg iron) Tablet,Delayed Release (Dr/Ec) 325 mg PO BIDWM Qty: 60 RF: 0 Eliquis DVT-PE Treat 30D Start 5 mg (74 tabs) tablets,dose pack See Rx Instructions .ROUTE .COMPLEX Qty: 74 RF: 0 Discharge Orders: Discharge ED (Routine); Ordered 10/06/20 Ordered By: Jennifer Eric Referrals: Farzad Kennedy DO [Primary Care Provider] - Coding Level of Care Code ED Learning And Development Officer for Chg Fwd Exam Expanded Problem Focused
[2020-10-06 17:24] VITALS: RESP 16; O2SAT 98
[2020-10-06] MEDS: morphine 4 mg/mL SDV 1 mL IM (17:24)
[2020-10-06] MEDS: orphenadrine 30 mg/mL Inj 2 mL 60 MG IM (17:24)
== END 2020-10-06 18:26 | disposition home or self-care (01) ==
PROVIDERS: Emergency Provider Physician Assistant; PCP Internal Medicine
DX: M25.562 Pain in left knee (principal); Z79.01 Long term (current) use of anticoagulants; Z87.891 Personal history of nicotine dependence
CPT/HCPCS: 12345; 73562; 96372; 99281; 99283; J2270; J2360

== ENCOUNTER 2020-11-07 06:46 | Outpatient (CLI) | payer OTHER, SELFPAY ==
--- NOTE | 2020-11-07 07:11 | MR_ITS ---
WS: [id number] MRI LEFT KNEE NONCONTRAST TECHNIQUE: Axial PD, coronal PD fat sat, coronal PD, sagittal PD, and sagittal PD fat-sat images obta ined. CLINICAL INFORMATION: LT KNEE INTERNAL DERANGEMENT COMPARISON: MRI left knee 2014 FINDINGS: Interval postoperative changes left knee meniscectomy. Chronic thinning of the medial and lateral men iscus. Blunting of the posterior horn lateral meniscus due to postoperative changes. Advanced narrowi ng of the medial and lateral joint compartments with near [id number] articulation worse involving t he medial joint compartment. No significant subchondral edema. Distal quadriceps and patella tendons are intact. Advanced chondromalacia patella with subchondral ed ángel. Diffuse loss of the patella cartilage. Moderate suprapatellar effusion. Small popliteal cyst. Po pliteal cyst measures 2.4 x 1.2 x 4.5 CM. Advanced chondromalacia involving the medial and lateral umesh int compartments. Normal posterior cruciate ligament. High-grade tear of the ACL. No normal fibers vi sualized. This is new from 2015. Degenerative arthritis has progressed since 2015. Medial and lateral collateral ligaments appear intact. Grade 1-2 injury involving the lateral collateral ligament. MR/MR knee LT wo con* [id number] IMPRESSION: 1. High-grade tear of the ACL. No normal ACL fibers visualized. This is new si nce 2014. PCL is intact. 2. Interval postoperative changes lateral meniscectomy with blunting of the po sterior horn. Chronic thinning of the medial and lateral meniscus with moderate to advanced joint space narrowing. 3. Moderate suprapatellar effusion. 4. Advanced chondromalacia patella with subchondral edema. 5. Small popliteal cyst as described above. 6. Grade 1-2 injury lateral collateral ligament which appears intact.
== END 2020-11-07 06:47 | disposition home or self-care (01) ==
LOC: RADSHAW 06:48
PROVIDERS: PCP Internal Medicine; Visit Provider Internal Medicine
DX: M23.92 Unspecified internal derangement of left knee (principal); M71.22 Synovial cyst of popliteal space [Baker], left knee; M22.42 Chondromalacia patellae, left knee; R60.0 Localized edema; M25.462 Effusion, left knee; S83.512A Sprain of anterior cruciate ligament of left knee, initial encounter; X58.XXXA Exposure to other specified factors, initial encounter
CPT/HCPCS: 73721

== ENCOUNTER 2021-04-13 08:00 | Outpatient (CLI) | payer OTHER, SELFPAY ==
--- NOTE | 2021-04-13 08:03 | MM_ITS ---
WS: [id number] SCREENING DIGITAL MAMMOGRAM WITH CAD HISTORY: SCREENING COMPARISON: 05/09/2017 Bilateral CC and MLO views submitted. Computer aided detection analyzed. Breast composition: There are scattered areas of fibroglandular density. Asymmetry with slight milly ectural distortion in the medial LEFT breast seen on the CC projection. There is mild asymmetry noted in the superior portion of the breast on the MLO projection. RIGHT breast is negative. MM/[place] [id number] IMPRESSION: BI-RADS: 0-Incomplete: Need additional imaging evaluation FOLLOW UP: Need Additional Imaging LEFT breast: Spot compression views (CC and MLO). True ML. Ultrasound to follow if abnormality persists.
== END 2021-04-13 08:01 | disposition home or self-care (01) ==
LOC: RADSHAW 08:02
PROVIDERS: PCP Internal Medicine; Visit Provider Internal Medicine
DX: Z12.31 Encounter for screening mammogram for malignant neoplasm of breast (principal)
CPT/HCPCS: 77067

== ENCOUNTER 2021-04-17 08:01 | Outpatient (CLI) | payer OTHER, SELFPAY ==
--- NOTE | 2021-04-17 08:15 | US_ITS ---
WS: [id number] ADDITIONAL VIEWS LEFT MAMMOGRAM LEFT BREAST ULTRASOUND HISTORY: LT BREAST ASYMMETRY/DENSITY COMPARISON: 04/13/2021 and 05/09/2017 LEFT MAMMOGRAM: Spot compression views and true ML. Spot compression views over the anterior LEFT breast medial and superior to the nipple demonstrates i ncreased soft tissue. Less nodular than on the prior screening exam. Ultrasound to follow. LEFT BREAST ULTRASOUND 2-D and color Doppler imaging submitted. No mass or shadowing or nodule noted in the LEFT breast from 10-2 o'clock. Dense fibroglandular tissu e. US/US breast LT limited* [id number] IMPRESSION: BI-RADS: 2-Benign FOLLOW UP: 1 Year Follow-up
== END 2021-04-17 08:02 | disposition home or self-care (01) ==
LOC: RADSHAW 08:03
PROVIDERS: PCP Internal Medicine; Visit Provider Internal Medicine
DX: N64.89 Other specified disorders of breast (principal)
CPT/HCPCS: 76642; 77065

== ENCOUNTER 2021-08-04 08:21 | Emergency (ER) | payer OTHER, SELFPAY ==
--- NOTE | 2021-08-04 08:23 | ECG_ITS ---
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 Measurements Intervals [place] Rate: 65 P: 42 MA: 160 QRS: 21 QRSD: 90 T: 40 QT: 378 QTc: 394 Interpretive Statements SINUS RHYTHM Compared to ECG 10/24/2019 03:24:02 Incomplete right bundle-branch block no longer present Electronically Signed On 08-06-2021 13:22:33 RADIOGRAPHER ANGIOGRAM by Freddy Alfaro M.D. [id number]
[2021-08-04 08:29] VITALS: BP 143/101; PULSE 72; RESP 16; TEMP 36.4; O2SAT 96; BMI 25.0
--- NOTE | 2021-08-04 08:34 | XR_ITS ---
WS: [id number] Portable AP upright chest, 08/04/2021 Clinical Data: chest pain Comparison: Portable chest, 09/05/2018. Findings: No nodules, masses or effusions are seen. The heart is normal. The pulmonary vascularity is not increased. No pneumonia or pneumothorax is seen. Monitor leads are on the chest wall. XR/XR chest 1V portable [id number] Impression: Negative chest.
--- NOTE | 2021-08-04 08:39 | CT_ITS ---
WS: [id number] CTA OF THE CHEST WITH PULMONARY EMBOLISM PROTOCOL TECHNIQUE: High-resolution contrast enhanced CTA of the chest with coronal and sagittal reformatted i tins with pulmonary embolism protocol. MIP images are also reviewed. CLINICAL INFORMATION: hx of PE, posterior back pain COMPARISON: CTA October 23, 2019 DLP: 500.[address] scans at [facility] use at least one of these dose optimization techniques: automated e xposure control; mA and/or kV adjustment per patient size (includes targeted exams where dose is matc hed to clinical indication); or iterative reconstruction. FINDINGS: Proximal main pulmonary arteries are normal. Normal segmental and subsegmental pulmonary arteries. No evidence for pulmonary embolus. Mild chronic emphysematous changes. Bibasilar atelectasis. A few marques cified granulomas. No focal pneumonia or pleural fluid. Enlarged thyroid. Normal caliber thoracic aor ta. No mediastinal or hilar lymphadenopathy. Adrenal glands are normal. CT/CT angio chest PE protcl [id number] IMPRESSION: 1. Proximal main pulmonary arteries are normal. No evidence of pulmonary embol us. 2. Mild chronic emphysematous changes with bibasilar atelectasis. 3. No focal pneumonia or pleural fluid. 4. Thyromegaly. This is unchanged from previous.
--- NOTE | 2021-08-04 08:40 | W.ED.GENADLT ---
HPI - General Adult General: Chief complaint: Chest Pain Stated complaint: chest pains and upper back pain Time Seen by Provider: 08/04/21 08:33 History of Present Illness: HPI narrative: CC: Chest Pain HPI: This is a [61] yo patient hx of provked PE 2018 previoulsy on eliquis up until December presenting to the ED complaining of acute sudden onset of chest pressure lasting for 30 minutes at a time at 5:00am in the L posterior back and chest. Patient reports pain is similar to prior chest pain from PE. Patiet had her booster vaccine for covid on Saturday. Reports mild dyspnea with chestp ain. Denies any exertional pain or dyspnea. Pain is not tearing in nature and does not radiate to the back. Pain not associated with vomiting or PO intake. Denies any recent sympathomimetic drug use. Patient denies any cough. Denies palpitations, dysphagia, diaphoresis, radiation of pain to bilateral arms, jaw. Denies F/N/V/D. Patient denies any recent immobility, surgery, or unilateral leg swelling. Patient denies any orthopnea. Onset: [2] hrs ago Duration: ongoing for the last 2 hrs Location: home Severity: mild/moderate Review of Systems Narrative: Constitutional: No fever, no chills. HEENT: No vision changes, no sore throat. CV: +chest pain, no palpitations. PULM: No cough, +dyspnea. GI: No abdominal pain, no N/V/D. : No dysuria, no frequency, no hematuria. MSKEL: No arthralgias, no edema. SKIN: No new rashes, no lesions. NEURO: No headache, no focal weakness. HEME: No easy bleeding or bruising. PSYCH: No change in mood or affect. PFS ED PFSH: Medical History (Updated 08/04/21 @ 08:44 by Park Matos MD) Allergic rhinitis Surgical History (Updated 10/24/19 @ 04:03 by Sherry Baker MD) History of hysterectomy History of orthopedic surgery Social History Smoking and tobacco status: former smoker Physical Exam Narrative: EXAM NARRATIVE: Head: Atraumatic, normocephalic Eyes: PERRL, EOMI, conjunctiva without injection ENT: Throat without erythema, lesions or exudate, MMM NECK: Supple, trachea midline, no JVD LUNGS: LCTA CV: RRR, S1,S2, no murmurs, rubs, gallops. 2+ peripheral pulses in UEs ABDOMEN: Soft, nontender, nondistended, BS x4, no rigidity, no guarding, no rebound EXTREMITY: Normal ROM, no pitting edema, no calf tenderness to palpation SKIN: No rash or erythema NEURO: Awake and alert. No focal motor deficits. PSYCH: Normal mood and affect. Course Vital Signs: Vital signs: Vital Signs Temperature 97.6 F 08/04/21 08:29 Pulse Rate 82 08/04/21 12:56 Respiratory Rate 16 08/04/21 12:56 Blood Pressure 103/74 08/04/21 12:56 Pulse Oximetry 96 08/04/21 12:56 MDM - General Adult MDM Narrative: Medical decision making narrative: [61]yo patient w/ hx of PE previously on AC presenting to the ED with evaluation of new onset pressure like chest pain since 5am. HDS, pulse 2+ radially bilaterally, no signs of fluid overload, AAOx3, neuro exam intact. Given History and Exam today I have no suspicion for ACS, Pneumothorax, Pneumonia, Pulmonary Embolus, Tamponade, Aortic Dissection or other emergent problems as a cause for this presentation. Workup: ECG, CXR, CBC, BMP, Troponin x 2, CTA chest Interventions: ASA, observation Findings: ECG: No overt evidence of STEMI, hyperacute T waves, localizable STD or T wave inversions. No evidence of Brugada?s sign, delta wave, epsilon wave, significantly prolonged QTc, or malignant arrhythmia. No Q waves. Other Labs unremarkable for emergent problems. CXR: Without PTX, PNA, or widened mediastinum Last Stress Test: never Last Heart Catheterization: never HEART Score: 3 (age, story, and smoking) [12:00pm] On reassessment, the patient is HDS, no complaints of persistent chest pain in the ED after evaluation. ECG is non-ischemic. Workup today is unremarkable. Doubt ACS/PE or other emergent causes of chest pain. Given HEART score of 3, will arrange patient for outpatient stress. Incidental findings of Thyromegaly discussed extensively with patient. Patient received a copy of the CT report with the documented findings. Patient is instructed to follow up urgently with specialists. Rx: Tylenol PRN pain Disposition: Discharge. Strict return precautions discussed with the patient with full understanding. Advised patient to follow up promptly with a primary care provider in 24-48 hrs if the patient has persistent symptoms. Given return instructions for any crushing/tearing chest pain, focal weakness, syncope or any new or concerning issues. Lab Data: Labs: Lab Results 08/04/21 08/04/21 08/04/21 08:45 08:45 08:45 WBC 5.0 10^3/uL 10^3/ uL (4.0-10.0) RBC 4.38 10^6/uL 10^6 /uL (4.1-5.3) Hgb 13.5 g/dL g/dL (11.5-15.3) Hct 41.9 % % (37.0-47.0) MCV 95.7 fl fl (81-99) MCH 30.8 pg pg (28.0-34.0) MCHC 32.2 g/dL g/dL (30.0-36.0) RDW 11.9 % L % (12.1-15.1) Plt Count 176 10^3/cmm 10^3 /cmm (130-400) MPV 10.2 fL fL (7.4-10.4) Neut % (Auto) 57.8 % % Lymph % (Auto) 31.3 % % [place] % (Auto) 6.3 % % Eos % (Auto) 3.8 % % Baso % (Auto) 0.6 % % Neut # (Auto) 2.91 10^3/uL 10^3 /uL (1.8-7.7) Lymph # (Auto) 1.6 10^3/uL 10^3/ uL (0.8-4.8) [place] # (Auto) 0.3 10^3/uL 10^3/ uL (0.2-0.9) Eos # (Auto) 0.2 10^3/uL 10^3/ uL (0.0-0.8) Baso # (Auto) 0.0 10^3/uL 10^3/ uL (0.0-0.1) Nucleated RBC % (a uto) 0 % % Nucleated RBCs # 0.0 /100WBC /100W BC Sodium 138 mmol/L mmol/L (136-145) Potassium 4.5 mmol/L mmol/L (3.5-5.1) Chloride 105 mmol/L mmol/L (98-107) Carbon Dioxide 23 mmol/L mmol/L (22-29) Anion Gap 14.5 (5-19) BUN 13 mg/dL mg/dL (8-23) Creatinine 0.9 mg/dL mg/dL (0.5-0.9) GFR Calculation 63.9 mL/min L mL/ min (90-130) Glucose 86 mg/dL mg/dL (65-115) Calculated Osmolal ity 285 mOsm/kg mOsm/ kg (285-295) Calcium 8.5 mg/dL mg/dL (8.5-10.5) Troponin T Baselin e 6 ng/L ng/L (0-10) Troponin T 120 Min [place] Delta Troponin T 08/04/21 10:42 WBC RBC Hgb Hct MCV MCH MCHC RDW Plt Count MPV Neut % (Auto) Lymph % (Auto) [place] % (Auto) Eos % (Auto) Baso % (Auto) Neut # (Auto) Lymph # (Auto) [place] # (Auto) Eos # (Auto) Baso # (Auto) Nucleated RBC % (a uto) Nucleated RBCs # Sodium Potassium Chloride Carbon Dioxide Anion Gap BUN Creatinine GFR Calculation Glucose Calculated Osmolal ity Calcium Troponin T Baselin e Troponin T 120 Min [place] 6.00 ng/L ng/L (0-10) Delta Troponin T 0 ABS# ABS# (0-10) Imaging Data^: Other Imaging: Radiologist's impression: [address] [id number] Scan ReportSigned Patient: Susan Turner #: [id number]: [id number]#:[id number]/Sex: 61 / FADM Date: 08/04/21Loc: ERRoom/Bed:Attending Dr: Ordering Provider/Ordering MD: Park Matos MD Date of Service: 08/04/21 Procedure(s): CT angio chest PE protcl [id number] Accession Number(s): [id number] Report Number: [id number] WS: [email or web address] CTA OF THE CHEST WITH PULMONARY EMBOLISM PROTOCOL TECHNIQUE: High-resolution contrast enhanced CTA of the chest with coronal and sagittal reformatted images with pulmonary embolism protocol. MIP images are also reviewed. CLINICAL INFORMATION: hx of PE, posterior back pain COMPARISON: CTA October 23, 2019 DLP: 500.[address] scans at [facility] use at least one of these dose optimization techniques: automated exposure control; mA and/or kV adjustment per patient size (includes targeted exams where dose is matched to clinical indication); or iterative reconstruction. FINDINGS: Proximal main pulmonary arteries are normal. Normal segmental and subsegmental pulmonary arteries. No evidence for pulmonary embolus. Mild chronic emphysematous changes. Bibasilar atelectasis. A few calcified granulomas. No focal pneumonia or pleural fluid. Enlarged thyroid. Normal caliber thoracic aorta. No mediastinal or hilar lymphadenopathy. Adrenal glands are normal. CT/CT angio chest PE protcl [id number] IMPRESSION: 1. Proximal main pulmonary arteries are normal. No evidence of pulmonary embolus. 2. Mild chronic emphysematous changes with bibasilar atelectasis. 3. No focal pneumonia or pleural fluid. 4. Thyromegaly. This is unchanged from previous. Dictated By:Cordell Soliz MDSigned By:Cordell Soliz MDSigned Date/Time:08/04/21 1017DD/ [address] [address]NOwd ReportSigned Patient: Susan Turner #: [id number]: 1960cct#:[id number]/Sex: 61 / FADM Date: 08/04/21Loc: ERRoom/Bed:Attending Dr: Ordering Provider/Ordering MD: Park Matos MD Date of Service: 08/04/21 Procedure(s): XR chest 1V portable [id number] Accession Number(s): [id number] Report Number: [id number] WS: [email or web address] Portable AP upright chest, 08/04/2021 Clinical Data: chest pain Comparison: Portable chest, 09/05/2018. Findings: No nodules, masses or effusions are seen. The heart is normal. The pulmonary vascularity is not increased. No pneumonia or pneumothorax is seen. Monitor leads are on the chest wall. XR/XR chest 1V portable [id number] Impression: Negative chest. Dictated By:Jazz Shukla MDSigned By:Jazz Shukla MDSigned Date/Time:08/04/21903DD/ 2 Discharge Plan Discharge Patient Disposition: Home Clinical Impression: Chest pain Condition: Stable Prescriptions: New acetaminophen 500 mg tablet 500 mg PO Q6H PRN (Reason: pain) 5 Days Qty: 20 RF: 0 No Action cyclobenzaprine 10 mg tablet 10 mg PO TID Qty: 14 RF: 0 hydrocodone-acetaminophen 5-325 mg tablet 1 tab PO Q6H PRN (Reason: pain) Qty: 14 RF: 0 ferrous sulfate 325 mg (65 mg iron) Tablet,Delayed Release (Dr/Ec) 325 mg PO BIDWM Qty: 60 RF: 0 Eliquis DVT-PE Treat 30D Start 5 mg (74 tabs) tablets,dose pack See Rx Instructions .ROUTE .COMPLEX Qty: 74 RF: 0 Discharge Orders: Discharge ED (Routine); Ordered 08/04/21 Ordered By: Park Matos Referrals: Farzad Kennedy DO [Primary Care Provider] - Discharge Diet: Advance as tolerated Discharge Activity: Resume usual activity Patient Instructions: Chest Pain (ED) Activity Restrictions/Additional Instructions: Come back to the emergency room if your chest pain worsens, have any fever or chills, worsening shortness of breath, worsening exertional lightheadedness, or any new or concerning complaints. Please follow up with your PCP for evaluation of enlarged thyroid. Here's your CT report: [address] [id number] Scan ReportSigned Patient: Susan Turner #: [id number]: [id number]#:[id number]/Sex: 61 / FADM Date: 08/04/21Loc: ERRoom/Bed:Attending Dr: Ordering Provider/Ordering MD: Park Matos MD Date of Service: 08/04/21 Procedure(s): CT angio chest PE protcl [id number] Accession Number(s): [id number] Report Number: [id number] WS: [email or web address] CTA OF THE CHEST WITH PULMONARY EMBOLISM PROTOCOL TECHNIQUE: High-resolution contrast enhanced CTA of the chest with coronal and sagittal reformatted images with pulmonary embolism protocol. MIP images are also reviewed. CLINICAL INFORMATION: hx of PE, posterior back pain COMPARISON: CTA October 23, 2019 DLP: 500.[address] scans at [facility] use at least one of these dose optimization techniques: automated exposure control; mA and/or kV adjustment per patient size (includes targeted exams where dose is matched to clinical indication); or iterative reconstruction. FINDINGS: Proximal main pulmonary arteries are normal. Normal segmental and subsegmental pulmonary arteries. No evidence for pulmonary embolus. Mild chronic emphysematous changes. Bibasilar atelectasis. A few calcified granulomas. No focal pneumonia or pleural fluid. Enlarged thyroid. Normal caliber thoracic aorta. No mediastinal or hilar lymphadenopathy. Adrenal glands are normal. CT/CT angio chest PE protcl [id number] IMPRESSION: 1. Proximal main pulmonary arteries are normal. No evidence of pulmonary embolus. 2. Mild chronic emphysematous changes with bibasilar atelectasis. 3. No focal pneumonia or pleural fluid. 4. Thyromegaly. This is unchanged from previous. Dictated By:Cordell Soliz MDSigned By:Cordell Soliz MDSigned Date/Time:08/04/21 1017DD/ 0956 Coding Level of Care Code ED Jewelry Coater for Arnulfo Martin
[2021-08-04 09:00] LABS: Basophils % 0.6 %; Eosinophils # 0.2 10^3/uL (0.0-0.8); Eosinophils % 3.8 %; Hematocrit 41.9 % (37.0-47.0); Hemoglobin 13.5 g/dL (11.5-15.3); Lymphocytes # 1.6 10^3/uL (0.8-4.8); Lymphocytes % 31.3 %; Mean Corpuscular HGB Conc 32.2 g/dL (30.0-36.0); Mean Corpuscular Hemoglobin 30.8 pg (28.0-34.0); Mean Corpuscular Volume 95.7 fl (81-99); Mean Platelet Volume 10.2 fL (7.4-10.4); Monocytes # 0.3 10^3/uL (0.2-0.9); Monocytes % 6.3 %; Neutrophils # 2.91 10^3/uL (1.8-7.7); Neutrophils % 57.8 %; Nucleated Red Blood Cells % 0 %; Platelet Count 176 10^3/cmm (130-400); Red Blood Count 4.38 10^6/uL (4.1-5.3); Red Cell Distribution Width 11.9 % (12.1-15.1)
[2021-08-04] MEDS: aspirin 325 mg Tablet PO (09:05)
[2021-08-04 09:17] LABS: Troponin(5th) Baseline 6 ng/L (0-10)
[2021-08-04 09:18] LABS: Anion Gap 14.5 (5-19); Blood Urea Nitrogen 13 mg/dL (8-23); Calcium 8.5 mg/dL (8.5-10.5); Carbon Dioxide 23 mmol/L (22-29); Chloride 105 mmol/L (98-107); Glomerular Filtration Rate 63.9 mL/min (90-130); Glucose 86 mg/dL (65-115); Osmolality Calculated 285 mOsm/kg (285-295); Potassium 4.5 mmol/L (3.5-5.1); Sodium 138 mmol/L (136-145)
[2021-08-04] MEDS: iohexol 350 mg/mL 100 mL Btl IV (09:38)
--- NOTE | 2021-08-04 10:34 | ECG_ITS ---
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 Measurements Intervals [place] Rate: 58 P: 39 ID: 160 QRS: 21 QRSD: 85 T: 42 QT: 376 QTc: 372 Interpretive Statements SINUS BRADYCARDIA Compared to ECG 08/04/2021 08:36:39 Sinus rhythm no longer present Electronically Signed On 08-07-2021 17:33:02 ZOOLOGY PROFESSOR by Freddy Alfaro M.D. [email or web address]
[2021-08-04 11:31] LABS: Troponin 5 2HR Delta 0 ABS# (0-10)
[2021-08-04 11:35] VITALS: BP 133/89; PULSE 66; RESP 12; O2SAT 100
[2021-08-04 12:56] VITALS: BP 103/74; PULSE 82; RESP 16; O2SAT 96
--- NOTE | 2021-08-07 11:44 | DCPLANNER ---
Addendum entered by Swetha Seymour 10/03/21 08:51: medical staff manager spoke with Anni at centralized scheduling, was told that patient no longer wants the test at this time. Original Note: medical staff manager had message to schedule an outpatient stress test for patient. medical staff manager faxed signed order to centralized scheduling, who will call patient with appointment information.
== END 2021-08-04 12:57 | disposition home or self-care (01) ==
PROVIDERS: Emergency Provider Emergency Medicine; PCP Internal Medicine
DX: R07.9 Chest pain, unspecified (principal); Z79.01 Long term (current) use of anticoagulants; Z87.891 Personal history of nicotine dependence
CPT/HCPCS: 71045; 71275; 80048; 84484; 85025; 93005; 99283; Q9967

== ENCOUNTER 2025-02-11 12:51 | Outpatient (CLI) | payer OTHER, SELFPAY ==
--- NOTE | 2025-02-11 12:55 | XR_ITS ---
WS: [email or web address] SCREENING DEXA SCAN [email or web address] CLINICAL INFORMATION: POSTMENOPAUSAL COMPARISON: None. FINDINGS: The L1-L4 bone mineral density measures 1.073 g/cm2. This corresponds to a T score score of -0.9 and Z score of 0.5. Left forearm bone mineral density measures 0.677. This corresponds to a T score of -2.3 and Z score of -1.0. Right femoral neck bone mineral density measures 0.98. This corresponds to a T score -0.2 of and Z score of 0.8. XR/XR DEXA axial skeleton* 92860 IMPRESSION: Osteopenia LEFT forearm. Normal bone mineralization lumbar spine and RIGHT femo ral neck. Patient's FRAX calculated 10 year probability for major osteoporotic fracture i s 5.5% and osteoporotic hip fracture is 0.1%.
--- NOTE | 2025-02-11 12:55 | MM_ITS ---
WS: [email or web address] BILATERAL 3D TOMOSYNTHESIS DIGITAL SCREENING MAMMOGRAPHY WITH CAD CLINICAL INFORMATION: SCREENING HISTORY: Screening mammogram. No current complaints. COMPARISON: 2020 TECHNIQUE: Bilateral CC and MLO views. FINDINGS: Scattered fibroglandular densities bilaterally. No suspicious focal mass, asymmetry, calcifications, or architectural distortion. No evidence of malignancy. A few incidental intramammary lymph nodes LEFT breast. MM/MM scr tomosynthesis 90620 IMPRESSION: DENSITY: There are scattered areas of fibroglandular density. BI-RADS: 2 - Benign. FOLLOW UP: 1 Year Follow-up Recommend return to annual screening mammography.
== END 2025-02-11 12:52 | disposition home or self-care (01) ==
PROVIDERS: PCP Internal Medicine; Visit Provider Family Medicine
DX: Z12.31 Encounter for screening mammogram for malignant neoplasm of breast (principal); Z78.0 Asymptomatic menopausal state; M85.832 Other specified disorders of bone density and structure, left forearm
CPT/HCPCS: 77063; 77067; 77080

== ENCOUNTER 2025-03-01 11:46 | Emergency (ER) | payer OTHER, SELFPAY ==
[2025-03-01 11:48] VITALS: BP 138/83; PULSE 70; TEMP 36.8; O2SAT 95; BMI 24.1
--- OUTSIDE RECORDS SUMMARY | 2025-03-01 11:51 | XMS_ITS | Clinical Summary ---
Author Organization [facility] Address [address] [place] [address] Care Team Providers Care Corduroy Brusher Operator Name Role Phone Unavailable Primary Care Provider Unavailabl e Allergies No known active allergies Medications apixaban (ELIQUIS ORAL) Take by mouth daily. Active diphenhydramine HCl (ANTIHISTAMINE ORAL) Take by mouth daily. 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 Gender Identity Not on file Sexual Orientation Not on file Last Filed Vital Signs Vital Sign Reading Time Taken Comments Blood Pressure 146/94 12/21/2020 2:44 PM CDT Provider Notified Pulse 89 12/21/2020 2:44 PM CDT Temperature - - Respiratory Rate - - Oxygen Saturation - - Inhaled Oxygen Concentration - - Weight 72.1 kg (159 lb) 12/21/2020 2:44 PM CDT Height 166.4 cm (5' 5.5 ) 12/21/2020 2: 44 PM CDT Body Mass Index 26.06 12/21/2020 2:44 PM CDT Plan of Treatment Health Maintenance Due Date Last Done Comments DTAP/TDAP/TD VACCINES (1 - Tdap) 02/05/1980 HPV/Cotest (21-29) 1982 CERVICAL CANCER SCREENING 1991 HPV/Cotest (30-65) 1991 PAP SMEAR 1991 BREAST CANCER SCREENING 2001 COLORECTAL SCREENING 2006 Colorectal Cancer Screening 2006 FIT-DNA Q 3 years 2006 FIT/FOBT Q 1 year 2006 Flex Sig/CT Colonography Q 5 years 2006 ZOSTER VACCINE (1 of 2) 2011 INFLUENZA VACCINE (#1) 2024 RSV VACCINE (60+ or ) (1 - 1-dose 75+ series) 02/05/2036 Insurance [employer] BENEFITS
--- OUTSIDE RECORDS SUMMARY | 2025-03-01 11:51 | XMS_ITS | Patient Health Record ---
Author Organization [facility] Address [address] [place] [address] Care Team Providers Care Brain Surgeon Name Role Phone NO PCP, NONE Primary Care Provider Unavailabl e REASON FOR REFERRAL No Information MEDICATIONS Medication SIG (Take, Route, Fr equency, Duration) Notes Start Date End Date Status Benadryl Active hydrOXYzine HCl 25 MG 1 tablet as needed Orally every 8 hours for 3 days, then as needed Active SOCIAL HISTORY Tobacco Use: Social History Observation Description Date Details (start date - stop date) Current Smoker NA - NA Sex Assigned At : Social History Observation Description Sex Assigned At Unknown Tobacco Use/Smoking Question Answer Notes Are you a current smoker * PLAN OF TREATMENT No Information Insurance Providers Payer Name Payer Address Payer Phone Subscriber Number Group Number Insured Name Patient Relationship to Insured Coverage Start Date Coverage End Date [employer] [address] [address] [place] [phone] [id number] Susan Turner Self - patient is the insured MEDICATIONS ADMINISTERED Medication Instructions Date of Administration Dosage Notes Solu-Medrol 12/25/2017 125 mg MEDICAL (GENERAL) HISTORY Surgical History Surgery Date(Month/Year) hysterectomy left knee arthroscopy Hospitalization History Reason Date(Month/Year) See Surgical History
--- OUTSIDE RECORDS SUMMARY | 2025-03-01 11:51 | XMS_ITS | Clinical Summary ---
Author Organization [facility] Address [address] [place] [address] Care Team Providers Care Paratransit Driver Name Role Phone Unavailable Primary Care Provider Unavailabl e Allergies No known active allergies Medications apixaban (ELIQUIS ORAL) Take by mouth daily. 12/21/2020 Active diphenhydramine HCl (ANTIHISTAMINE ORAL) Take by mouth daily. 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
--- OUTSIDE RECORDS SUMMARY | 2025-03-01 11:51 | XMS_ITS | Encounter Summary ---
Author Organization [facility] Address [address] [place] [address] Care Team Providers Care Tiltrotor Crew Chief Name Role Phone Unavailable Primary Care Provider Unavailabl e Encounter Details Date Type Department Care Team (Latest Contact Info) Description 12/21/2020 Ancillary Orders [facility] Orthopedics - Orthopedic [facility] [address] [place] [address] Ean Stahl III, MD [address] [place] [address] Left knee pain, unspecified chronicity Social History Tobacco Use Types Packs/Day Years Used Date Smoking Tobacco: Every Day Smokeless Tobacco: Never Comments Unknown Sex and Gender Information Value Date Recorded Sex Assigned at Not on file 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 No / Unsure 12/21/2020 2:14 PM CDT documented as of this encounter Plan of Treatment Not on file documented as of this encounter Results * XR KNEE 1 OR 2 VW LEFT (12/21/2020 2:28 PM CDT) Anatomical Region Laterality Modality Lower Extremity Computed Radiogr aphy Narrative 12/22/2020 4:17 PM CDT I obtained X-rays today. AP and lateral radiograph of the left knee shows some mild to moderate degenerative osteoarthritis. No evidence of fracture, dislocation, or tumor. Ean Stahl III, MD DIAGNOSTIC IMAGING ORD ERABLES Final Result documented in this encounter Visit Diagnoses Diagnosis Left knee pain, unspecified chronicity Left knee pain, unspecified chronicity documented in this encounter
--- OUTSIDE RECORDS SUMMARY | 2025-03-01 11:51 | XMS_ITS | Data Portability ---
Author Organization [facility] (formerly [facility])Jocelyne [facility] Address [address] [address] Care Team Providers Care Restrooms Or Lounges Maid Name Role Phone SANDERSMONIQUE Primary Care Provider Unavailabl e Assessment No assessment recorded. Plan of Treatment Reminders Order Date Submit Date Provider Last Modified By Organization Details Last Modified Time Details Appointments None recorded. Lab CMP, serum or plasma 2024 025 [facility], [address], [address], [place], [address], 5 09:42:55 lipid panel, blood 2024 025 [facility], [address], [address], [place], [address], 5 09:42:57 CBC 2024 025 [facility], [address], [address], [place], [address], 5 13:42:09 CMP, serum or plasma 2023 024 [facility], [address], [address], [place], [address], 17:00:29 lipid panel, blood 2023 024 [facility], [address], [address], [place], [address], 4 17:00:31 CBC 2023 024 [facility], [address] 1, [place], [address], 4 15:06:22 TSH, serum or plasma 2023 024 [facility] ([facility]), [address] [facility], [place], [address], 4 15:48:03 Referral general surgeon referral 2023 024 [email or web address] Anand Israel MD, [address] [place] [address] 3, [place], [address], 4 17:10:04 Procedures None recorded. Surgeries None recorded. Imaging MAMMO, screening, digital, bilateral 2024 025 [email or web address] 2 [facility], [address] [place], [address], 5 14:18:49 DEXA 2024 025 [email or web address] 2 [facility], [address] [place], [address], 5 14:19:16 MAMMO, screening, digital, bilateral 2023 024 [email or web address] 2 [facility], [address] [place], [address], 4 17:26:00 Medication Orders prednisone 20 mg tablet [address] [facility] 15, [address], [place], [address], 5 13:07:41 betamethaso ne acetate and sodium phos 6 mg/mL suspension for injection 2024 025 [email or web address] Not available 13:14:46 hydrocodone 5 mg-acetamin ophen 325 mg tablet [address] [facility] 15, [address], [place], [address], 13:25:07 Patient TargetsNo targets recorded. Patient Instructions Encounter Date Encounter Id Patient Instructions Last Modified By Organization Details Last Modified Time 04/06/2024 [id number] reviewed xray from walk in showing OA; she uses hydro infrequently; giving 30 every 90 days; will continue labs due in May due for colonoscopy Not available 04/06/2024 14:29:05 06/01/2024 [id number] gets mammograms had colonoscopy [email or web address] Not available 06/01/2024 14:04:49 Reason for Referral General Surgeon Referral for Screening for malignant neoplasm of colon Referring Physician: Farzad Kennedy, Internal Medicine, Encounter Date: 04/06/2024 Results Created Date Observation Date Name Description Value Unit Range Abnormal Flag Note LastModifiedBy Organization Detail LastModifiedTime 06/01/2006/01/2024 CBC WBC 5.2 x10 4.0-10 .5 Not Available [facility] [address], [place], [address], 06/01/2024 15:06:22 06/01/20 24 06/01/2024 CBC RBC 4.19 x10 3.50-5 .50 Not Available [facility] [address], [place], [address], 06/01/2024 15:06:22 06/01/20 24 06/01/2024 CBC HGB 13.7 g/dL 12.0-1 6.0 Not Available [facility] [address], [place], [address], 06/01/2024 15:06:22 09/30/20 24 06/01/2024 CBC HCT 39.9 % 37.0-4 7.0 Not Available [facility] [address] [facility] 1, [place], [address], 06/01/2024 15:06:22 06/01/20 24 06/01/2024 CBC MCV 95.3 fL 80.0-9 9.9 Not Available [facility] [address] [facility] 1, [place], [address], 06/01/2024 15:06:22 06/01/20 24 06/01/2024 CBC MCH 32.6 pg 27.0-3 2.0 high Not Available [facility] [address] [facility] 1, [place], [address], 06/01/2024 15:06:22 06/01/20 24 06/01/2024 CBC MCHC 34.3 g/dL 32.0-3 6.0 Not Available [facility] [address] [facility] 1, [place], [address], 06/01/2024 15:06:22 06/01/20 24 06/01/2024 CBC RDW 13.1 % 11.5-1 4.5 Not Available [facility] [address] [facility] 1, [place], [address], 06/01/2024 15:06:22 06/01/20 24 06/01/2024 CBC plt 177.6 x10 140.0- 451.0 Not Available [facility] [address] [facility] [facility] 1, [place], [address], 06/01/2024 15:06:22 06/01/20 24 06/01/2024 CBC lymphocytes % 39.7 % 20.0-5 0.0 Not Available [facility] [address] [facility] 1, [place], [address], 06/01/2024 15:06:22 06/01/20 24 06/01/2024 CBC granulcytes % 52.1 % 30.0-7 0.0 Not Available [facility] [address] [facility] 1, [place], [address], 06/01/2024 15:06:22 06/01/20 24 06/01/2024 CBC monocytes % 5.8 % 2.0-16 .0 Not Available [facility] [address] [facility] 1, [place], [address], 06/01/2024 15:06:22 06/01/20 24 06/01/2024 CBC granulcytes# 2.7 x10 Not Yolanda ilable [facility] [address] [facility] 1, [place], [address], 06/01/2024 15:06:22 06/01/20 24 06/01/2024 CBC lymphocytes # 2.1 x10 Not Available [facility] [address] [facility], [place], [address], 06/01/2024 15:06:22 06/01/20 24 06/01/2024 CBC monocytes # 0.3 x10 Not Avai lable [facility] [address] [facility], [place], [address], 06/01/2024 15:06:22 06/01/20 24 06/01/2024 CMP (FEMA LE) glucose 93.0 mg/dL 60.0-9 9.0 Not Available [facility] [address] [facility] 1, [place], [address], 06/01/2024 17:00:29 06/01/20 24 06/01/2024 CMP (FEMA LE) BUN (blood urea nitrogen) 13.0 mg/dL 10.0-2 6.0 Not Available [facility] [address] [facility], [place], [address], 06/01/2024 17:00:29 06/01/20 24 06/01/2024 CMP (FEMA LE) creatinine (serum) 0.8 mg/dL 0.4-1. 5 Not Available [facility] [address] [facility], [place], [address], 06/01/2024 17:00:29 06/01/20 24 06/01/2024 CMP (FEMA LE) BUN/creatini ne ratio 15.48 ratio Not Available [facility] [address] [facility], [place], [address], 06/01/2024 17:00:29 06/01/20 24 06/01/2024 CMP (FEMA LE) eGFR calculated 72.8 Not Available [facility] [address] [facility], [place], [address], 06/01/2024 17:00:29 06/01/20 24 06/01/2024 CMP (FEMA LE) total protein 6.9 g/dL 6.0-8. 5 Not Available [facility] [address] [facility], [place], [address], 06/01/2024 17:00:29 06/01/20 24 06/01/2024 CMP (FEMA LE) total bilirubin 0.4 mg/dL 0.2-1. 3 Not Available [facility] [address] [facility], [place], [address], 06/01/2024 17:00:29 06/01/20 24 06/01/2024 CMP (FEMA LE) albumin 4.0 g/dL 3.5-5. 5 Not Available [facility] [address] [facility], [place], [address], 06/01/2024 17:00:29 06/01/20 24 06/01/2024 CMP (FEMA LE) globulin 2.9 calc Not Available [facility] [address] [facility] 1, [place], [address], 06/01/2024 17:00:29 06/01/20 24 06/01/2024 CMP (FEMA LE) AST (SGOT) 32.0 U/L 0.0-46 .0 Not Available [facility] [address] [facility] 1, [place], [address], 06/01/2024 17:00:29 06/01/20 24 06/01/2024 CMP (FEMA LE) altv (SGPT) 23.0 U/L 13.0-6 9.0 normal Not Available [facility] [address] [facility] 1, [place], [address], 06/01/2024 17:00:29 06/01/20 24 06/01/2024 CMP (FEMA LE) A/G ratio 1.4 ratio Not Available [facility] [address] [facility] 1, [place], [address], 06/01/2024 17:00:29 06/01/20 24 06/01/2024 CMP (FEMA LE) ALP phos 77.0 U/L 30.0-1 40.0 normal Not Available [facility] [address] [facility] 1, [place], [address], 06/01/2024 17:00:29 06/01/20 24 06/01/2024 CMP (FEMA LE) calcium 9.5 mg/dL 8.4-10 .5 Not Available [facility] [address] [facility] 1, [place], [address], 06/01/2024 17:00:29 06/01/20 24 06/01/2024 CMP (FEMA LE) sodium 138.0 mmol/ L 136.0- 145.0 Not Available [facility] [address] [facility] 1, [place], [address], 06/01/2024 17:00:29 06/01/20 24 06/01/2024 CMP (FEMA LE) potassium 3.9 mmol/ L 3.5-5. 1 Not Available [facility] [address] [facility] 1, [place], [address], 06/01/2024 17:00:29 06/01/20 24 06/01/2024 CMP (FEMA LE) chloride 110.0 mmol/ L 98.0-1 10.0 normal Not Available [facility] [address] [facility] 1, [place], [address], 06/01/2024 17:00:29 06/01/20 24 06/01/2024 CMP (FEMA LE) C02 27.0 mmol/ L 22.0-3 1.0 Not Available [facility] [address] [facility] 1, [place], [address], 06/01/2024 17:00:29 06/01/20 24 06/01/2024 CMP (FEMA LE) anion gap 1.0 calc Not Available [facility] [address] [address], [place], [address], 06/01/2024 17:00:29 06/01/20 24 06/01/2024 CMP (FEMA LE) osmolality 285.0 calc Not Available [facility] [address] [address], [place], [address], 06/01/2024 17:00:29 06/01/20 24 06/01/2024 LIPID PROFI LE (FEMA LE) cholesterol 259.0 mg/dL 0.0-20 0.0 high Not Available [facility] [address] [address], [place], [address], 06/01/2024 17:00:31 06/01/20 24 06/01/2024 LIPID PROFI LE (FEMA LE) trig 140.0 mg/dL 0.0-15 0.0 Not Available [facility] [address] [address], [place], [address], 06/01/2024 17:00:31 06/01/20 24 06/01/2024 LIPID PROFI LE (FEMA LE) HDL - direct 73.0 mg/dL >40.0 Not Available [facility] [address] [address], [place], [address], 06/01/2024 17:00:31 06/01/20 24 06/01/2024 LIPID PROFI LE (FEMA LE) VLDL - direct 28.0 mg/dL Not Available [facility] [address] [address], [place], [address], 06/01/2024 17:00:31 06/01/20 24 06/01/2024 LIPID PROFI LE (FEMA LE) LDL - direct 158.0 mg/dL 0.0-13 0.0 high Not Available [facility] [address], [address], 06/01/2024 17:00:31 06/01/20 24 06/01/2024 TSH, serum or plasm a TSH 0.56 uIU/m L 0.49-3 .82 normal Not Available [facility] ([facility]) [address] [place], [address], 06/01/2024 14:03:55 02/05/20 25 2025 CBC WBC 5.9 x10 4.0-10 .5 Not Available [facility] [address], [address], 2025 13:42:02/05/2002/04/2025 CBC RBC 4.07 x10 3.50-5 .50 Not Available [facility] [address] [facility] 1, [place], [address], 2025 13:42:02/05/2002/04/2025 CBC HGB 13.0 g/dL 12.0-1 6.0 Not Available [facility] [address] [facility] 1, [place], [address], 2025 13:42:02/05/2002/04/2025 CBC HCT 39.0 % 37.0-4 7.0 Not Available [facility] [address] [facility] 1, [place], [address], 2025 13:42:02/05/2002/04/2025 CBC MCV 95.9 fL 80.0-9 9.9 Not Available [facility] [address] [facility] 1, [place], [address], 2025 13:42:02/05/2002/04/2025 CBC MCH 31.8 pg 27.0-3 2.0 Not Available [facility] [address] [facility] 1, [place], [address], 2025 13:42:02/05/2002/04/2025 CBC MCHC 33.2 g/dL 32.0-3 6.0 Not Available [facility] [address] [facility] 1, [place], [address], 2025 13:42:02/05/2002/04/2025 CBC RDW 13.0 % 11.5-1 4.5 Not Available [facility] [address] [address], [place], [address], 2025 13:42:02/05/20 25 2025 CBC plt 195.1 x10 140.0- 451.0 Not Available [facility] [address] [address], [place], [address], 2025 13:42:02/05/2002/04/2025 CBC lymphocytes % 38.7 % 20.0-5 0.0 Not Available [facility] [address] [address], [place], [address], 2025 13:42:02/05/20 25 2025 CBC granulcytes % 52.9 % 30.0-7 0.0 Not Available [facility] [address] [address], [place], [address], 2025 13:42:09 02/05/20 25 2025 CBC monocytes % 6.7 % 2.0-16 .0 Not Available [facility] [address] [address], [place], [address], 2025 13:42:02/05/20 25 2025 CBC granulcytes# 3.1 x10 Not Yolanda ilable [facility] [address] [address], [place], [address], 2025 13:42:02/05/2002/04/2025 CBC lymphocytes # 2.3 x10 Not Available [facility] [address] [address], [place], [address], 2025 13:42:02/05/20 25 2025 CBC monocytes # 0.4 x10 Not Avai lable [facility] [address] [facility] [facility] 1, [place], [address], 2025 13:42:09 02/05/20 25 02/05/2025 CMP (FEMA LE) glucose 91.0 mg/dL 60.0-9 9.0 Not Available [facility] [address] [facility], [place], [address], 02/05/2025 09:42:55 02/05/20 25 02/05/2025 CMP (FEMA LE) BUN (blood urea nitrogen) 17.0 mg/dL 10.0-2 6.0 Not Available [facility] [address] [facility], [place], [address], 02/05/2025 09:42:55 02/05/20 25 02/05/2025 CMP (FEMA LE) creatinine (serum) 0.9 mg/dL 0.4-1. 5 Not Available [facility] [address] [facility], [place], [address], 02/05/2025 09:42:55 02/05/20 25 02/05/2025 CMP (FEMA LE) BUN/creatini ne ratio 18.89 ratio Not Available [facility] [address] [facility] 1, [place], [address], 02/05/2025 09:42:55 02/05/20 25 02/05/2025 CMP (FEMA LE) eGFR calculated 67.0 Not Available [facility] [address] [facility] 1, [place], [address], 02/05/2025 09:42:55 02/05/20 25 02/05/2025 CMP (FEMA LE) total protein 6.6 g/dL 6.0-8. 5 Not Available [facility] [address] [facility] 1, [place], [address], 02/05/2025 09:42:55 02/05/20 25 02/05/2025 CMP (FEMA LE) total bilirubin 0.5 mg/dL 0.2-1. 3 Not Available [facility] [address] [facility] 1, [place], [address], 02/05/2025 09:42:55 02/05/20 25 02/05/2025 CMP (FEMA LE) albumin 3.8 g/dL 3.5-5. 5 Not Available [facility] [address] [facility] 1, [place], [address], 02/05/2025 09:42:55 02/05/20 25 02/05/2025 CMP (FEMA LE) globulin 2.8 calc Not Available [facility] [address] [facility] 1, [place], [address], 02/05/2025 09:42:55 02/05/20 25 02/05/2025 CMP (FEMA LE) AST (SGOT) 25.0 U/L 0.0-46 .0 Not Available [facility] [address] [facility] 1, [place], [address], 02/05/2025 09:42:55 02/05/20 25 02/05/2025 CMP (FEMA LE) altv (SGPT) 21.0 U/L 13.0-6 9.0 normal Not Available [facility] [address] [facility], [place], [address], 02/05/2025 09:42:55 02/05/20 25 02/05/2025 CMP (FEMA LE) A/G ratio 1.4 ratio Not Available [facility] [address] [facility] 1, [place], [address], 02/05/2025 09:42:55 02/05/20 25 02/05/2025 CMP (FEMA LE) ALP phos 89.0 U/L 30.0-1 40.0 normal Not Available [facility] 8[address] [facility] 1, [place], [address], 02/05/2025 09:42:55 02/05/20 25 02/05/2025 CMP (FEMA LE) calcium 9.1 mg/dL 8.4-10 .5 Not Available [facility] [address] [facility] 1, [place], [address], 02/05/2025 09:42:55 02/05/20 25 02/05/2025 CMP (FEMA LE) sodium 140.0 mmol/ L 136.0- 145.0 Not Available [facility] [address] [facility] 1, [place], [address], 02/05/2025 09:42:55 02/05/20 25 02/05/2025 CMP (FEMA LE) potassium 4.3 mmol/ L 3.5-5. 1 Not Available [facility] [address] [facility] 1, [place], [address], 02/05/2025 09:42:55 02/05/20 25 02/05/2025 CMP (FEMA LE) chloride 111.0 mmol/ L 98.0-1 10.0 abnormal Not Available [facility] [address] [facility] 1, [place], [address], 02/05/2025 09:42:55 02/05/20 25 02/05/2025 CMP (FEMA LE) C02 25.0 mmol/ L 22.0-3 1.0 Not Available [facility] 8[address] [facility] 1, [place], [address], 02/05/2025 09:42:55 02/05/20 25 02/05/2025 CMP (FEMA LE) anion gap 4.0 calc Not Available [facility] [address] [facility] 1, [place], [address], 02/05/2025 09:42:55 02/05/20 25 02/05/2025 CMP (FEMA LE) osmolality 290.2 calc Not Available [facility] [address] [facility] 1, [place], [address], 02/05/2025 09:42:55 02/05/20 25 02/05/2025 LIPID PROFI LE (FEMA LE) cholesterol 225.0 mg/dL 0.0-20 0.0 high Not Available [facility] [address] [facility] 1, [place], [address], 02/05/2025 09:42:57 02/05/20 25 02/05/2025 LIPID PROFI LE (FEMA LE) trig 107.0 mg/dL 0.0-15 0.0 Not Available [facility] [address] [facility] 1, [place], [address], 02/05/2025 09:42:57 02/05/20 25 02/05/2025 LIPID PROFI LE (FEMA LE) HDL - direct 53.0 mg/dL >40.0 Not Available [facility] [address] [facility] 1, [place], [address], 02/05/2025 09:42:57 02/05/20 25 02/05/2025 LIPID PROFI LE (FEMA LE) VLDL - direct 21.4 mg/dL Not Available [facility] 805 [facility] 1, [place], [address], 02/05/2025 09:42:57 02/05/20 25 02/05/2025 LIPID PROFI LE (FEMA LE) LDL - direct 150.6 mg/dL 0.0-13 0.0 high Not Available [facility] 805 [facility] 1, [place], [address], 02/05/2025 09:42:57 02/19/2002/21/2025 PTH, INTAC T WITHO UT CALCI UM parathyroid hormone, intact 38 pg/mL 16-77 normal Inter preti ve Guide Intac t PTH Calci um ----- ----- ----- --- ----- ----- ----- -- Keli l Parat hyroi d Keli l Keli l Hypop natalie yroid ism Low or Low Keli l Low Hyper parat hyroi dism Prima ry Keli l or High High Secon hernandez High Keli l or Low Terti gayle High High Non-P natalie yroid Hyper calce cody Low or Low Keli l High Not Available [facility] [address] [place], [address], 02/21/2025 08:08:58 02/19/2002/21/2025 VITAM IN D,25- OH,TO ROB,I A vitamin D,25-oh,tota l,ia 62 NG/mL 30-100 normal Vitam in D Statu s 25-OH Vitam in D: Defic iency : <20 ng/mL Insuf ficie ncy: 20 - 29 ng/mL Optim al: > or = 30 ng/mL For 25-OH Vitam in D testi ng on patie nts on D2-hassan pplem entat ion and patie nts for whom quant itati on of D2 and D3 fract ions is requi red, the [employer] Assur eD(TM ) 25-OH VIT D, (D2,D 3), LC/MS /MS is recom paola d: order code 89410 (shania ents >2yrs ). See Note 1 Note 1 For addit ional infor tristan gonzales refer to http: //russell Brandon gnrajeev [email or web address].c om/fa q/FAQ 199 (This link is being provi ded for infor kylee victoria/ thierry montiel purpo ses only. ) Not Available [facility] [address] [place], [address], 02/21/2025 08:09:00 03/23/20 24 03/23/2024 XR, foot, 3 or more view No observ ation record ed. [email or web address] [facility] [address] [place], [address], 03/25/2024 15:00:55 05/18/20 24 colon oscop y proce dure (PROC ) No observ ation record ed. [email or web address] Not Available 2023 16:22:50 02/12/20 25 02/11/2025 DEXA No observ ation record ed. [address] [place], [address], 02/16/2025 10:45:14 02/13/20 25 02/11/2025 MAMMO , scree diamond, digit al, bilat eral No observ ation record ed. [address] [place], [address], 02/16/2025 10:43:47 Result Notes None recorded. Problems Name Problem SNOMED Code Status Onset Date Resolution Date Notes Provider Name and Address Organization Details Recorded Time Persisten t insomnia 068378757 Active 2022 FRANCISCO mcgregor [facility], LMelchorLShon 08:51:20 History of pulmonary embolus 215099319 Active 2024 happened one week after knee surgery FRANCISCO mcgregor [facility], L.L.CMelchor 12:58:37 Hyperlipi demia 80354685 Active 2024 FRANCISCO mcgregor [facility], L.L.CMelchor 15:29:13 Contact dermatiti s 37121026 Active 2024 Kin Wright MD [address] [place] [address], [id number], [facility], Jocelyne 5 13:06:41 Osteopeni a 863029002 Active 2024 Nata mcgregro [facility], GavinLShon 5 10:45:40 Pain of bilateral hip joints [id number] [address]80 Active 2022 FRANCISCO BOLANOS balbir [facility], Jocelyne 5 08:51:14 Problem Notes None recorded. Procedures Surgical History Date Name Laterality Status Provider Name and Address Organization Details Recorded Time 05/11/20 24 colonoscopy completed YRIS NAVA [facility], LRadha 05/14/2024 15:31:25 03/23/20 24 plain X-ray of left foot completed ANATOLIY MIRELES [facility], Jocelyne 03/25/2024 14:59:54 08/28/20 21 total replacement of left hip joint completed FRANCISCO CICI [facility], L.LMelchorCMelchor 01/28/2025 09:03:10 10/16/19 20 arthroscopy of left knee joint completed FRANCISCO BOLANOS [facility], LMelchorLMelchorCMelchor 01/28/2025 09:04:32 hysterectomy completed FRANCISCO [facility], L.LMelchorCMelchor 01/28/2025 09:01:21 Imaging Results None recorded. Procedure Notes None recorded. Medical Equipment None Reported. Allergies No known drug allergies Medications Name Sig Start Date Stop Date Status Note LastModified by Organization Details LastModified Time trazodone 50 mg tablet TAKE 1 TABLET BY MOUTH ONCE DAILY active Not Available Not Available No t Available hydrocodone 5 mg-acetamin ophen 325 mg tablet TAKE 1 TABLET BY MOUTH EVERY 6 HOURS NEEDED active Not Available Not Available No t Available prednisone 20 mg tablet TAKE 3 TABLETS BY MOUTH ONCE DAILY FOR 3 DAYS THEN 2 ONCE DAILY FOR 3 DAYS THEN 1 ONCE DAILY FOR 3 DAYS active Not Available Not Available No t Available fluorouraci l 5 % topical cream APPLY THIN LAYER TO YOUR CHEST TWICE DAILY FOR 3 WEEKS 05/27 completed Not Available Not Available Not Available triamcinolo ne acetonide 0.1 % topical cream APPLY THIN COAT TO AFFECTED AREA TWICE A DAY 06/01 completed Not Available Not Available Not Available amoxicillin 500 mg tablet TAKE 4 TABLETS BY MOUTH 1 HOUR BEFORE APPT. 05/27 completed Not Available Not Available Not Available betamethaso ne acetate and sodium phos 6 mg/mL suspension for injection Take 1 mL by injection route. 2024 active Not Available Not Available Not Avai lable Vitamin D 800mcg daily active Not Available Not Available No t Available turmeric 400 mg capsule Take 1 capsule every day by oral route. active Not Available Not Available No t Available BinaxNOW COVID-19 Ag Self Test kit REFER TO MANUFACTU [employer]ER [employer] ONS INCLUDED IN PACKAGING 05/27 completed Not Available Not Available Not Available Vitals Date Recorded Body height Body mass index (BMI) Body weight Body temperature Heart rate Oxygen saturation Oxygen saturation in Arterial blood by Pulse oximetry Systolic blood pressure Diastolic blood pressure Provider Name and Address Organization Details Last Updated DateTime 5 167.64 cm 23.7 kg/m2 33978.0 8 g 97.7 [degF] 70 /min 97 % 97 % 122 mm[Hg] 70 mm[Hg] FRANCISCO BOLANOS [facility] 5 12:56:35 Date Recorded Body height Body mass index (BMI) Body weight Oxygen saturation Oxygen saturation in Arterial blood by Pulse oximetry Heart rate Body temperature Systolic blood pressure Diastolic blood pressure Provider Name and Address Organization Details Last Updated DateTime 5 167.64 cm 24 kg/m2 67989.2 6 g 97 % 97 % 68 /min 98.2 [degF] 116 mm[Hg] 72 mm[Hg] Ann Cook [facility] 5 12:58:44 Date Recorded Body height Body mass index (BMI) Body weight Respiratory rate Heart rate Oxygen saturation Oxygen saturation in Arterial blood by Pulse oximetry Systolic blood pressure Diastolic blood pressure Provider Name and Address Organization Details Last Updated DateTime 4 167.64 cm 24.2 kg/m2 78795.8 6 g 20 /min 81 /min 98 % 98 % 134 mm[Hg] 72 mm[Hg] YRIS NAVA [facility] 4 14:07:08 Date Recorded Body height Body mass index (BMI) Body weight Respiratory rate Heart rate Oxygen saturation Oxygen saturation in Arterial blood by Pulse oximetry Systolic blood pressure Diastolic blood pressure Provider Name and Address Organization Details Last Updated DateTime 4 167.64 cm 24.9 kg/m2 76217.2 2 g 18 /min 78 /min 98 % 98 % 140 mm[Hg] 72 mm[Hg] YRIS NAVA [facility] 4 13:54:29 Social History Question Answer Notes LastModified by [employer] Details LastModified Time Tobacco Smoking Status Current Every Day Smoker [facility] 01/28/2025 08:57:38 What Was The Date Of Your Most Recent Tobacco Screening? 02/11/2025 [email or web address] Information not available 02/11/2025 What Is Your Current Pack Years? 10-19packyear s [email or web address] Information not available 01/28/2025 At What Age Did You Start Smoking Tobacco? 33 [email or web address] Information not available 01/28/2025 How Much Tobacco Do You Smoke? 0.5 PPD [email or web address] Information not available 01/28/2025 Sex: Unknown Functional Status Question Answer Note LastModified by [email or web address] Details LastModified Time Do you or have you ever used any other forms of tobacco or nicotine? No [email or web address] Information not available 01/28/2025 What is your level of alcohol consumption? Occasional [email or web address] Information not available 01/28/2025 Do you or have you ever used any nicotine-free cigarettes, vape, or chewing tobacco? No [email or web address] Information not available 01/28/2025 Mental Status None recorded. Family History Relationship Description Onset Age of this Age Resolved Age Notes LastModified by Organization Details LastModified Time Mother Vascular dementia [email or web address] Not available 01/28 12:59:44 Medical History Condition Response Coronary Artery Disease N Gout N Other N Blood Diseases N Kidney Stones N Hyperthyroidism N Blood Transfusion N Breast Cancer N Hypothyroidism N Depression N COPD N Lung Disease N Defects or Inherited Disease N Developmental or Behavioral Disorders N Breast Problem N Difficulty Swallowing N Anesthesia Complications N Anxiety Disorder N Meniere's disease N Muscle, Joint, or Bone Problems N Vision or Eye Problems N Arthritis N Polyps N Infertility N Cancer N Varicosities N Stroke N Endometriosis N Bladder or Kidney Problems N High Cholesterol N Liver Disease N Headaches N Fibromyalgia N Kidney Disease N Allergies/Hayfever N Heart Problems N Ear or Hearing Problems N Hospitalizations N Thyroid Problems N GI Problems N ADD/ADHD N Skin Problems N Eating Disorder N Anemia N Constipation N Mental Illness N Ovarian Cancer N Diabetes N Bedwetting N Seizures/Epilepsy N Tuberculosis N Eczema N Diverticulitis N Abuse/Domestic Violence N Asthma N Reflux/GERD N Hepatitis N Heart Disease N Pulmonary Embolism N Chronic Ear Infections N Pre-Eclampsia N Hypertension N Chicken Pox N Autism Spectrum Disorder (ASD) N Osteoporosis N Thrombophilias N Gynecological HistoryNo gynecological history recorded. Obstetrics History GPAL:G 0 P 0 0 0 0 Immunizations Vaccine Type Date Status Note Provider Nam e and Address Organization Details Recorded Time COVID-19, mRNA, LNP-S, PF, 100 mcg/0.5mL dose or 50 mcg/0.25mL dose 09[facility]27/2020 [facility] 02/25/2023 12:53:50 COVID-19, mRNA, LNP-S, PF, 100 mcg/0.5mL dose or 50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
--- OUTSIDE RECORDS SUMMARY | 2025-03-01 11:51 | XMS_ITS | Encounter Summary ---
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 Gender Identity Not on file Sexual Orientation Not on file documented as of this encounter Plan of Treatment Not on file documented as of this encounter Procedures Procedure Name Priority Date/Time Associated Diagnosis Comments WET PREP GENITAL Routine 02/16/2005 10:2 5 AM CDT CBC WITH DIFFERENTIAL Routine 02/16/2005 9:56 AM CDT HCG QUANTITATIVE, BLOOD Routine 02/16/2005 9:56 AM CDT COMPREHENSIVE METABOLIC PANEL Routine 02/16/2005 9:56 AM CDT URINALYSIS MICROSCOPY ONLY Routine 02/16/2005 9:52 AM CDT URINALYSIS W/REFLEX MICROSCOPIC Routine 02/16/2005 9:52 AM CDT documented in this encounter Results * WET PREP GENITAL (02/16/2005 10:25 AM CDT) WET PREP GENITAL None Observed None Observed INTERFACE SYSTEM WET YEAST None Observed None Observed INTERFACE SYSTEM WET CLUE CELLS None Observed None Observed INTERFACE SYSTEM 02/16/2005 10:2 5 AM CDT us Yvon Waterman MD MICROBIOLOGY - GENERAL ORDERABL ES Final Result INTERFACE SYSTEM Refer to clinic/hospital department * HCG QUANTITATIVE, BLOOD (02/16/2005 9:56 AM CDT) CHORIONIC GONADOTROPIN, TOTAL <2.0 0.0 - 10.0 INTERFACE SYSTEM Comment: As of 04 at 12:00 p.m. [facility] has changed the methodology for ThCG, and with this change the reference range has changed from 0-5.0 mIU/ml to 0-10.0 mIU/ml. ----- ----- Total HCG levels between 10 mIU/mL and 25 mIU/mL may be indicative of early but need to be correlated with other clinical findings. HCG ranges during normal , as reported by the specialty transformer assembler, are summarized as follows: Gestational Age Expected hCG Values(mIU/ml) 0.2-1 Weeks 5 - 50 1-2 Weeks 50 - 500 2-3 Weeks 100 - 5,000 3-4 Weeks 1,000 - 50,000 5-6 Weeks 10,000 - 100,000 6-8 Weeks 15,000 - 200,000 2-3 Months 10,000 - 100,000 02/16/2005 9:56 AM CDT Yvon Waterman MD CHEMISTRY ORDERABLES Final Resu lt Performing Organization Address [facility] [[email or web address]] de Phone Number INTERFACE SYSTEM Refer to clinic/hospital department * COMPREHENSIVE METABOLIC PANEL (02/16/2005 9:56 AM CDT) GLUCOSE 85 70 - 110 mg/dL INTERFACE SYSTEM BUN 8 7 - 17 mg/dL INTERFACE SYSTEM CREATININE 0.9 0.7 - 1.2 mg/dL INTERFACE SYSTEM SODIUM 138 136 - 145 mEq/L INTERFACE SYSTEM POTASSIUM 4.2 3.5 - 5.0 mEq/L INTERFACE SYSTEM CO2 24 22 - 32 mmol/l INTERFACE SYSTEM CHLORIDE 108 95 - 110 mEq/L INTERFACE SYSTEM CALCIUM 8.6 8.4 - 10.5 mg/dL INTERFACE SYSTEM ALKALINE PHOSPHATASE 72 38 - 126 IU/L INTERFACE SYSTEM TOTAL PROTEIN 6.7 6.3 - 8.2 g/dL INTERFACE SYSTEM ALBUMIN 3.5 3.5 - 5.0 g/dL INTERFACE SYSTEM AST 23 14 - 36 IU/L INTERFACE SYSTEM ALT 20 9 - 52 IU/L INTERFACE SYSTEM BILIRUBIN TOTAL 0.2 0.2 - 1.4 mg/dL INTERFACE SYSTEM GLOBULIN (CALC) 3.2 2.4 - 3.9 g/dL INTERFACE SYSTEM ANION GAP 10 9 - 20 mEq/L INTERFACE SYSTEM ALBUMIN/GLOBULIN RATIO 1.1 1.0 - 2.3 INTERFACE SYSTEM OSMOLALITY, CALCULATED 282 275 - 295 mOsm/Kg INTERFACE SYSTEM 02/16/2005 9:56 AM CDT Yvon Waterman MD CHEMISTRY ORDERABLES Final Resu lt Performing Organization Address [facility]/ZIP Co de Phone Number INTERFACE SYSTEM Refer to clinic/hospital department * (ABNORMAL) CBC WITH DIFFERENTIAL (02/16/2005 9:56 AM CDT) WBC 6.2 4.5 - 11.0 K/ul INTERFACE SYSTEM RBC 4.08(L) 4.20 - 5.40 Mil/ul INTERFACE SYSTEM HEMOGLOBIN 12.0 12.0 - 16.0 g/dL INTERFACE SYSTEM HEMATOCRIT 36.8 36.0 - 46.0 % INTERFACE SYSTEM MCV 90.2 84.0 - 103.0 Fl INTERFACE SYSTEM MCH 29.4 27.0 - 34.0 pg INTERFACE SYSTEM MCHC 32.6 30.0 - 35.0 g/dL INTERFACE SYSTEM RDW 13.3 11.0 - 14.5 % INTERFACE SYSTEM PLATELETS 190 140 - 440 K/ul INTERFACE SYSTEM MPV 10.4 8.9 - 12.8 Fl INTERFACE SYSTEM NEUTROPHILS 66.5 42.2 - 75.2 % INTERFACE SYSTEM LYMPHOCYTES 24.3 24.0 - 44.0 % INTERFACE SYSTEM MONOCYTES 7.1 2.0 - 10.0 % INTERFACE SYSTEM EOSINOPHILS 1.9 0.0 - 7.0 % INTERFACE SYSTEM BASOPHILS 0.2 0.0 - 1.0 % INTERFACE SYSTEM NEUTROPHIL ABSOLUTE 4.1 2.0 - 8.0 K/uL INTERFACE SYSTEM LYMPHOCYTE ABSOLUTE 1.5 1.2 - 4.0 K/ul INTERFACE SYSTEM MONOCYTE ABSOLUTE 0.4 0.1 - 0.6 K/ul INTERFACE SYSTEM EOSINOPHIL ABSOLUTE 0.1 0.0 - 0.7 K/ul INTERFACE SYSTEM BASOPHILS ABSOLUTE 0.0 0.0 - 0.2 K/ul INTERFACE SYSTEM 02/16/2005 9:56 AM CDT Yvon Waterman MD HEMATOLOGY ORDERABLES Final Res ult INTERFACE SYSTEM Refer to clinic/hospital department * (ABNORMAL) URINALYSIS (02/16/2005 9:52 AM CDT) COLOR UA Pale Yellow Straw INTERFAC E SYSTEM CLARITY UA SL CLOUDY Clear INTERFACE SYSTEM LEUKOCYTE ESTERASE UA NEGATIVE NEGATIVE INTERFACE SYSTEM NITRITE UA NEGATIVE NEGATIVE INTERFACE SYSTEM PH UA 7.0 5.0 - 9.0 INTERFACE SYSTEM PROTEIN UA NEGATIVE NEGATIVE INTERFACE SYSTEM GLUCOSE UA NEGATIVE NEGATIVE INTERFACE SYSTEM KETONES UA NEGATIVE NEGATIVE INTERFACE SYSTEM UROBILINOGEN UA 0.2 INTE RFACE SYSTEM BILIRUBIN UA NEGATIVE NEGATIVE INTERFA CE SYSTEM BLOOD UA NEGATIVE NEGATIVE INTERFACE SYSTEM SPECIFIC GRAVITY UA 1.005 1.005 - 1.030 INTERFACE SYSTEM MICRO EXAM Yes(A) No INTERFACE SYSTEM 02/16/2005 9:52 AM CDT Yvon Waterman MD URINE ORDERABLES Final Result Performing Organization Address [facility] [[email or web address]] de Phone Number INTERFACE SYSTEM Refer to clinic/hospital department * URINALYSIS MICROSCOPY ONLY (02/16/2005 9:52 AM CDT) WBC URINE None Seen 0 - 2 INTERFACE SYSTEM RBC UA None Seen 0 - 2 INTERFACE SYSTEM HYALINE CAST None Seen 0 - 2 INTERFA CE SYSTEM BACTERIA UA None Seen None Seen INTERFAC E SYSTEM 02/16/2005 9:52 AM CDT Yvon Waterman MD URINE ORDERABLES Final Result Performing Organization Address [facility] [[email or web address]] de Phone Number INTERFACE SYSTEM Refer to clinic/hospital department documented in this encounter Visit Diagnoses Diagnosis Candidiasis of vulva and vagina- Primary documented in this encounter
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
--- NOTE | 2025-03-01 13:11 | XRR_ITS ---
PROCEDURE INFORMATION: Exam: XR Left Finger(s) Exam date and time: 03/01/2025 1:15 PM Age: 65 years old Clinical indication: Injury or trauma; Other: Crush injury; Crushing; Left; Index finger TECHNIQUE: Imaging protocol: Radiologic exam of the left fingers. Views: Minimum 2 views. COMPARISON: No relevant prior studies available. FINDINGS: Bones/joints: No fracture. No lytic or sclerotic bone lesion. The periarticular soft tissues are normal. Small corticated density at the dorsal aspect of the PIP joint and DIP joint are probably related to degenerative disease rather than trauma. In the oblique image the distal index finger is not included in the study. Soft tissues: Normal. XR/XR finger LT min 2V [id number] IMPRESSION: No acute findings.
[2025-03-01] MEDS: tetanus-dipt-pertussis 0.5 mL SDV IM (13:16)
[2025-03-01 13:55] VITALS: BP 136/85; PULSE 67; RESP 16; O2SAT 98
== END 2025-03-01 13:56 | disposition home or self-care (01) ==
PROVIDERS: Emergency Provider Physician Assistant; PCP Family Medicine
DX: S67.193A Crushing injury of left middle finger, initial encounter (principal); X58.XXXA Exposure to other specified factors, initial encounter; Z79.01 Long term (current) use of anticoagulants
CPT/HCPCS: 73140; 90471; 90715; 99283